=== PATIENT | male | born 1945 | race African-American/Black ===

== ENCOUNTER 2018-05-08 07:33 | Emergency (ER) | payer BC, MEDICARE ==
[~2018-05-08] VITALS: Ht 170.2 cm; Wt 63.5 kg
[~2018-05-08 07:33] MED LIST: ASPI-630 PO; ATOR10TA PO; CARV12.511 PO; CETI10TA16 PO; CITA10TA8 PO; FURO20TA3 PO; HYDR-2761 PO; HYDR-2868 PO; HYDR12.58 PO; L AC460C PO; LOSA100T14 PO; LOSA1TAB19 PO; LOSA25TA54 PO; LOVA20TA2 PO; METR-34 PO; OMEP40CA5 PO; SUCR1TAB PO; TAMS0.4C2 PO; TEMA30CA PO
--- NOTE | 2018-05-08 08:51 | PHYS DOC ---
Past Medical History Past Medical History: GERD, High Cholesterol, Hypertension Additional Past Medical Histor: dumping syndrome, STOMACH ULCERS, BPH, CHRONIC ABD PAIN, thryoid Past Surgical History: Appendectomy, Cholecystectomy, Other Additional Past Surgical Histo: multiple abd surgeries d/t ulcers, carpal tunnel, GASTRIC BYPASS Alcohol Use: Rarely Drug Use: None Adult General Chief Complaint Chief Complaint: MULTIPLE COMPLAINTS [facility] HPI Patient is a 72 year old male who presents with multiple complaints. He has right hand pain and swelling. Pt states his hand pain has been there for a couple months but has gotten worse recently. The pain is located on the back of his hand. He describes a hot, burning sensation. He denies any recent trauma. He states that he also has a similar burning sensation down the lateral aspect of his right leg. The pt also complains of rectal pain with leaking starting a couple weeks ago. He describes an itchy burning sensation. He has a history of many prior abdominal surgeries and chronic abdominal pain for which he takes pain medication. He struggles with constipation due to narcotic use and takes a stool softener. He denies blood in his stool. Review of Systems Review of Systems Constitutional: Denies fever or chills [] Eyes: Denies change in visual acuity, redness, or eye pain [] HENT: Denies nasal congestion or sore throat [] Respiratory: Denies cough or shortness of breath [] Cardiovascular: No additional information not addressed in HPI [] GI: Complains of chronic abdominal pain, rectal pain, and rectal leaking, Denies nausea, vomiting, bloody stools or diarrhea [] : Denies dysuria or hematuria [] Musculoskeletal: Denies back pain or joint pain, Complains of right hand pain[] Integument: Denies rash or skin lesions [] Neurologic: Denies headache, focal weakness Endocrine: Denies polyuria or polydipsia [] All other systems were reviewed and found to be within normal limits, except as documented in this note. Allergies Allergies Allergies Coded Allergies Type Severity Reaction Last Updated Verified No Known Drug Allergies 09/05/13 No Physical Exam Physical Exam Constitutional: Well developed, well nourished, no acute distress, non-toxic appearance. [] HENT: Normocephalic, atraumatic, bilateral external ears normal, oropharynx moist, no oral exudates, nose normal. [] Eyes: PERRLA, EOMI, conjunctiva normal, no discharge. [] Neck: Normal range of motion, no tenderness, supple, no stridor. [] Pulmonary: Normal respiratory effort no increased work of breathing no obvious chest wall trauma Abdomen: Bowel sounds normal, soft, mild nonspecific tenderness which reports is chronic, no masses, no pulsatile masses. [] Rectal exam there is no stool in the vault there is no obstruction there is mild enlargement of the prostate. There may be a small external hemorrhoid no signs of clot Back: No tenderness, no CVA tenderness. [] Extremities: No tenderness, no cyanosis, no clubbing, ROM intact, no edema. [] Neurologic: Alert and oriented X 3, normal motor function,, no focal deficits noted. []There is some decreased sensation to light touch over the dorsum of the right hand however motor function is totally intact pulses present no erythema Psychologic: Affect normal, judgement normal, mood normal. [] Current Patient Data Vital Signs Vital Signs Date Time Temp Pulse Resp B/P (MAP) Pulse Ox O2 Delivery O2 Flow Rate FiO2 05/08/18 09:00 52 16 148/73 (98) 100 Room Air 05/08/18 08:09 98.1 98.1 EKG EKG [] Radiology/Procedures Radiology/Procedures [] Course & Med Decision Making Course & Med Decision Making Pertinent Labs and Imaging studies reviewed. (See chart for details) []72-year-old male multiple medical problems as noted above presenting with 2 major complaints the first is that of some rectal itching and burning pain he may have a small hemorrhoid he was recommended to continue stool softeners for that. In addition is having some burning pain over his dorsum of his right hand this is long-standing several months if not longer we can do a trial of gabapentin apparently this seems to be the maintenance bugging him right now so I recommended that he try gabapentin follow-up with his doctor within 1 week to consider increasing the dose of that. Return precautions were discussed patient voiced understanding these symptoms are subacute or chronic in duration I doubt any acute emergency at this time Dragon Disclaimer Dragon Disclaimer This electronic medical record was generated, in whole or in part, using a voice recognition dictation system. Departure Departure Impression: Primary Impression: Right hand pain Disposition: 01 HOME, SELF-CARE Condition: STABLE Referrals: JAVIER BARRIOS (PCP) Scripts Gabapentin (GABAPENTIN ) 100 Mg Capsule 100 MG PO TID for NEUROGENIC PAIN, #30 CAP Prov: LEX AKERS MD 05/08/18 LEX AKERS MD May 08, 2018 08:51
[2018-05-08 09:00] VITALS: BP 148/73
[2018-05-08] MEDS ORDERED: GABA-585 PO (09:02)
== END 2018-05-08 09:28 | disposition home or self-care (01) ==
LOC: ER 07:33
DX: M79.641 Pain in right hand (principal); M79.89 Other specified soft tissue disorders; K62.89 Other specified diseases of anus and rectum; K59.00 Constipation, unspecified; G89.29 Other chronic pain; R10.9 Unspecified abdominal pain; K21.9 Gastro-esophageal reflux disease without esophagitis; E78.00 Pure hypercholesterolemia, unspecified; I10 Essential (primary) hypertension; Z90.89 Acquired absence of other organs; Z90.49 Acquired absence of other specified parts of digestive tract
CPT/HCPCS: 99283

== ENCOUNTER 2018-09-27 16:31 | Emergency (ER) | payer BC, MEDICARE ==
[~2018-09-27] VITALS: Ht 170.2 cm; Wt 69.4 kg
[~2018-09-27 16:31] MED LIST changes: +GABA-585 PO
[2018-09-27] MEDS ORDERED: IV NORMAL SALINE 1000ML BAG 1,000 ML IV ONE (17:30)
[2018-09-27] MEDS ORDERED: ONDANSETRON PF 4 MG/2 ML VIAL. IV ONE (17:30)
[2018-09-27 18:17] LABS: BASO % 0 % (0-3); EOS % 0 % (0-3); HEMATOCRIT 32.6 % (39.0-53.0); HEMOGLOBIN 10.8 g/dL (13.0-17.5); LYMPH # 0.3 x10^3/uL (1.0-4.8); LYMPH % 3 % (24-48); MEAN CORPUSCULAR HEMOGLOBIN 28 pg (25-35); MEAN CORPUSCULAR HGB CONC 33 g/dL (31-37); MEAN CORPUSCULAR VOLUME 84 fL (79-100); MONO # 0.3 x10^3/uL (0.0-1.1); MONO % 3 % (0-9); NEUT # 11.5 x10^3/uL (1.8-7.7); NEUT % 94 % (31-73); PLATELET COUNT 206 x10^3/uL (140-400); RED BLOOD COUNT 3.86 x10^6/uL (4.30-5.70); RED CELL DISTRIBUTION WIDTH 15.7 % (11.5-14.5); WHITE BLOOD COUNT 12.2 x10^3/uL (4.0-11.0)
--- NOTE | 2018-09-27 18:24 | RAD ---
Exam: Chest one view INDICATION: Dizziness TECHNIQUE: Frontal view of the chest Comparisons: 06/22/2015 FINDINGS: The cardiomediastinal silhouette and pulmonary vessels are within normal limits. The lung and pleural spaces are clear. IMPRESSION: No acute cardiopulmonary process. Electronically signed by: Cherie Cid MD (09/27/2018 6:21 PM) [facility]
[2018-09-27 18:25] LABS: PROTHROMBIN TIME PATIENT 12.9 SEC (11.7-14.0)
[2018-09-27 18:30] LABS: CALCIUM 8.2 mg/dL (8.5-10.1); CREATININE 1.8 mg/dL (0.7-1.3); GFR 45.1; POTASSIUM 4.6 mmol/L (3.5-5.1)
[2018-09-27 18:32] LABS: ALBUMIN 3.1 g/dL (3.4-5.0); ALBUMIN/GLOBULIN RATIO 1.3 (1.0-1.7); TOTAL BILIRUBIN 0.2 mg/dL (0.2-1.0); TOTAL PROTEIN 5.4 g/dL (6.4-8.2)
[2018-09-27 18:39] LABS: % BANDS 1 % (0-9); % LYMPHS 4 % (24-48); % MONOS 2 % (0-10); % SEGS 93 % (35-66); PLT ESTIMATE ADEQUATE (ADEQUATE)
[2018-09-27 18:40] LABS: ACANTHOCYTES OCC; ANISOCYTOSIS SLIGHT; BURR CELLS FEW
[2018-09-27 18:41] LABS: HYPOCHROMIA SLIGHT; SCHISTOCYTES OCC
--- NOTE | 2018-09-27 19:18 | RAD ---
Exam: CT head INDICATION: Dizziness TECHNIQUE: Sequential axial images through the head were obtained without the administration of IV contrast. Comparisons: None FINDINGS: No focal parenchymal lesion or hemorrhage is identified. There is no midline shift or sulcal effacement. No acute vascular territory infarction is identified. Mann-white distinction is preserved. The ventricular system is within normal limits without compression hydrocephalus. The basal cisterns are well maintained. The visualized portions of the paranasal sinuses and mastoid air cells are well-pneumatized. No acute fractures. IMPRESSION: No acute intracranial abnormality. Exposure: One or more of the following in the visualized dose reduction techniques were utilized for this examination: 1. Automated exposure control 2. Adjustment of the MA and/or KV according to patient size Use of iterative of reconstructive technique Electronically signed by: Cherie Cid MD (09/27/2018 7:16 PM) [facility]
[2018-09-27 19:46] LABS: BILIRUBIN,URINE NEGATIVE (NEG); CLARITY,URINE CLEAR; COLOR,URINE YELLOW; NITRITE,URINE NEGATIVE (NEG); PROTEIN,URINE NEGATIVE (NEG-TRACE); UROBILINOGEN,URINE 0.2 mg/dL (0.2 mg/dL)
--- NOTE | 2018-09-27 19:47 | RAD ---
Exam: CT abdomen and pelvis without contrast INDICATION: Dizziness TECHNIQUE: Sequential axial images through the abdomen and pelvis obtained without IV contrast. Sagittal and coronal reformatted images were reconstructed from the axial data and reviewed. Comparisons: 05/15/2015 FINDINGS: Heart size is normal. No pericardial effusion. Visualized lung bases are clear. No pleural effusion. Evaluation of solid organs is limited secondary to noncontrast technique. Liver, spleen, pancreas and adrenals are unremarkable. Gallbladder is absent. No perinephric inflammation or hydronephrosis. No renal or ureteral calculi are identified. Bladder is distended and appears thin walled. Prostate is mildly enlarged. Extensive postsurgical changes in the bowel. Mild bowel wall thickening affecting the descending colon. Diverticulosis noted at the sigmoid colon without evidence of acute diverticulitis. No obstruction. No free intra-abdominal air or fluid. Abdominal aorta has a normal course and caliber. No enlarged intra-abdominal lymph nodes are identified. No suspicious osseous lesions or acute fractures. IMPRESSION: Mild bowel wall thickening with haziness in the adjacent mesenteric fat at the ascending colon, favored to represent colitis may be infectious or inflammatory etiologies. Exposure: One or more of the following in the visualized dose reduction techniques were utilized for this examination: 1. Automated exposure control 2. Adjustment of the MA and/or KV according to patient size 3. Use of iterative of reconstructive technique Electronically signed by: Cherie Cid MD (09/27/2018 7:44 PM) [facility]
[2018-09-27 19:53] LABS: BACTERIA,URINE 0 /HPF (0-FEW); RBC,URINE 0 /HPF (0-2); SQUAMOUS EPITHELIAL CELL,UR OCC /LPF; WBC,URINE RARE /HPF (0-4)
[2018-09-27 19:59] LABS: BARBITURATES NEG (NEG); BENZODIAZEPINES NEG (NEG); CANNABINOIDS NEG (NEG); COCAINE NEG (NEG); METHADONE NEG (NEG); OPIATES POS (NEG); PHENCYCLIDINE NEG (NEG)
[2018-09-27 20:11] LABS: AMPHETAMINE/METHAMPHETAMINE NEG (NEG)
[2018-09-27 20:15] VITALS: BP 133/75
[2018-09-27] MEDS ORDERED: ONDA4TAB12 PO (20:32)
[2018-09-27] MEDS ORDERED: METR500T PO (20:32)
[2018-09-27] MEDS ORDERED: CIPR500T94 PO (20:32)
--- NOTE | 2018-09-27 20:32 | PHYS DOC ---
Past Medical History Past Medical History: GERD, High Cholesterol, Hypertension Additional Past Medical Histor: dumping syndrome, STOMACH ULCERS, BPH, CHRONIC ABD PAIN, thryoid Past Surgical History: Appendectomy, Cholecystectomy, Other Additional Past Surgical Histo: multiple abd surgeries d/t ulcers, carpal tunnel, GASTRIC BYPASS Alcohol Use: Rarely Drug Use: None Adult General Chief Complaint Chief Complaint: NAUSEA/VOMITING/DIARRHA HPI HPI Patient is a 73 year old male with history of hypertension, high cholesterol, acid reflex, multiple abdominal surgeries, who presents to the ED today complaining of 7 out of 10 generalized abdominal pain with vomiting that began today. Patient denies diarrhea. Denies any fever. He is also complaining of dizziness with abdominal pain. Denies anything specifically exacerbating or relieving his symptoms. He states he has an appointment with a GI doctor tomorrow morning. He states he has chronic abdominal pain and is on multiple medications for pain. Review of Systems Review of Systems Constitutional: Denies fever or chills [] Eyes: Denies change in visual acuity, redness, or eye pain [] HENT: Denies nasal congestion or sore throat [] Respiratory: Denies cough or shortness of breath [] Cardiovascular: No additional information not addressed in HPI [] GI: Reports abdominal pain, nausea and vomiting, denies bloody stools or diarrhea [] : Denies dysuria or hematuria [] Musculoskeletal: Denies back pain or joint pain [] Integument: Denies rash or skin lesions [] Neurologic: Reports dizziness. Denies headache, focal weakness or sensory changes [] All other systems were reviewed and found to be within normal limits, except as documented in this note. Current Medications Current Medications Current Medications Medications (Trade) Dose Ordered Sig/Kika Start Time Stop Time Status Last Admin Dose Admin Ondansetron HCl (Zofran) 4 mg 1X ONCE 09/27/18 17:30 09/27/18 17:33 DC 09/27/18 18:23 4 MG Sodium Chloride 1,000 ml @ 1,000 mls/hr 1X ONCE 09/27/18 17:30 09/27/18 18:29 DC 09/27/18 18:23 1,000 MLS/HR Allergies Allergies Allergies Coded Allergies Type Severity Reaction Last Updated Verified No Known Drug Allergies 09/05/13 No Physical Exam Physical Exam Constitutional: Well developed, well nourished, no acute distress, non-toxic appearance. [] HENT: Normocephalic, atraumatic, bilateral external ears normal, oropharynx moist, no oral exudates, nose normal. [] Eyes: PERRLA, EOMI, conjunctiva normal, no discharge. [] Neck: Normal range of motion, no tenderness, supple, no stridor. [] Cardiovascular:Heart rate regular rhythm, no murmur [] Lungs & Thorax: Bilateral breath sounds clear to auscultation [] Abdomen: Old healed surgical incision noted midline abdomen. Bowel sounds normal, soft, diffuse tenderness throughout the abdomen, no obvious point tenderness to the right upper quadrant or right lower quadrant no masses, no pulsatile masses. [] Skin: Warm, dry, no erythema, no rash. [] Back: No tenderness, no CVA tenderness. [] Extremities: No tenderness, no cyanosis, no clubbing, ROM intact, no edema. [] Neurologic: Alert and oriented X 3, normal motor function, normal sensory function, no focal deficits noted. Cranial nerves II through XII intact Psychologic: Affect normal, judgement normal, mood normal. [] Current Patient Data Vital Signs Vital Signs Date Time Temp Pulse Resp B/P (MAP) Pulse Ox O2 Delivery O2 Flow Rate FiO2 09/27/18 17:16 97.5 60 20 168/83 (111) 99 Room Air 97.5 Lab Values Laboratory Tests Test 09/27/18 18:05 09/27/18 19:39 White Blood Count 12.2 x10^3/uL (4.0-11.0) H Red Blood Count 3.86 x10^6/uL (4.30-5.70) L Hemoglobin 10.8 g/dL (13.0-17.5) L Hematocrit 32.6 % (39.0-53.0) L Mean Corpuscular Volume 84 fL (79-100) Mean Corpuscular Hemoglobin 28 pg (25-35) Mean Corpuscular Hemoglobin Concent 33 g/dL (31-37) Red Cell Distribution Width 15.7 % (11.5-14.5) H Platelet Count 206 x10^3/uL (140-400) Neutrophils (%) (Auto) 94 % (31-73) H Lymphocytes (%) (Auto) 3 % (24-48) L Monocytes (%) (Auto) 3 % (0-9) Eosinophils (%) (Auto) 0 % (0-3) Basophils (%) (Auto) 0 % (0-3) Neutrophils # (Auto) 11.5 x10^3/uL (1.8-7.7) H Lymphocytes # (Auto) 0.3 x10^3/uL (1.0-4.8) L Monocytes # (Auto) 0.3 x10^3/uL (0.0-1.1) Eosinophils # (Auto) 0.0 x10^3/uL (0.0-0.7) Basophils # (Auto) 0.0 x10^3/uL (0.0-0.2) Segmented Neutrophils % 93 % (35-66) H Band Neutrophils % 1 % (0-9) Lymphocytes % 4 % (24-48) L Monocytes % 2 % (0-10) Platelet Estimate Adequate (ADEQUATE) Hypochromasia Slight Anisocytosis Slight Fran Cells Few Acanthocytes (Spur Cells) Occ Schistocytes Occ Prothrombin Time 12.9 SEC (11.7-14.0) Prothrombin Time INR 1.0 (0.8-1.1) Sodium Level 144 mmol/L (136-145) Potassium Level 4.6 mmol/L (3.5-5.1) Chloride Level 109 mmol/L (98-107) H Carbon Dioxide Level 26 mmol/L (21-32) Anion Gap 9 (6-14) Blood Urea Nitrogen 18 mg/dL (8-26) Creatinine 1.8 mg/dL (0.7-1.3) H Estimated GFR (Cockcroft-Gault) 45.1 BUN/Creatinine Ratio 10 (6-20) Glucose Level 113 mg/dL (70-99) H Calcium Level 8.2 mg/dL (8.5-10.1) L Magnesium Level 2.0 mg/dL (1.8-2.4) Total Bilirubin 0.2 mg/dL (0.2-1.0) Aspartate Amino Transferase (AST) 58 U/L (15-37) H Alanine Aminotransferase (ALT) 71 U/L (16-63) H Alkaline Phosphatase 152 U/L (46-116) H Creatine Kinase 235 U/L (39-308) Creatine Kinase MB (Mass) 6.2 ng/mL (0.0-3.6) H Creatine Kinase MB Relative Index 2.6 % (0-4) Troponin I Quantitative < 0.017 ng/mL (0.000-0.055) FN-Gru-F-Type Natriuretic Peptide 150 pg/mL (0-124) H Total Protein 5.4 g/dL (6.4-8.2) L Albumin 3.1 g/dL (3.4-5.0) L Albumin/Globulin Ratio 1.3 (1.0-1.7) Lipase 102 U/L (73-393) Urine Collection Type Unknown Urine Color Yellow Urine Clarity Clear Urine pH 6.0 Urine Specific Barnes 1.015 Urine Protein Negative mg/dL (NEG-TRACE) Urine Glucose (UA) Negative mg/dL (NEG) Urine Ketones (Stick) Negative mg/dL (NEG) Urine Blood Negative (NEG) Urine Nitrite Negative (NEG) Urine Bilirubin Negative (NEG) Urine Urobilinogen Dipstick 0.2 mg/dL (0.2 mg/dL) Urine Leukocyte Esterase Negative (NEG) Urine RBC 0 /HPF (0-2) Urine WBC Rare /HPF (0-4) Urine Squamous Epithelial Cells Occ /LPF Urine Bacteria 0 /HPF (0-FEW) Urine Opiates Screen Pos (NEG) Urine Methadone Screen Neg (NEG) Urine Barbiturates Neg (NEG) Urine Phencyclidine Screen Neg (NEG) Urine Amphetamine/Methamphetamine Neg (NEG) Urine Benzodiazepines Screen Neg (NEG) Urine Cocaine Screen Neg (NEG) Urine Cannabinoids Screen Neg (NEG) Urine Ethyl Alcohol Neg (NEG) Laboratory Tests 09/27/18 18:05 Laboratory Tests 09/27/18 18:05 EKG EKG [] Radiology/Procedures Radiology/Procedures []PROCEDURE: CT HEAD WO CONTRAST Exam: CT head INDICATION: Dizziness TECHNIQUE: Sequential axial images through the head were obtained without the administration of IV contrast. Comparisons: None FINDINGS: No focal parenchymal lesion or hemorrhage is identified. There is no midline shift or sulcal effacement. No acute vascular territory infarction is identified. Mann-white distinction is preserved. The ventricular system is within normal limits without compression hydrocephalus. The basal cisterns are well maintained. The visualized portions of the paranasal sinuses and mastoid air cells are well-pneumatized. No acute fractures. IMPRESSION: No acute intracranial abnormality. Exposure: One or more of the following in the visualized dose reduction techniques were utilized for this examination: 1. Automated exposure control 2. Adjustment of the MA and/or KV according to patient size Use of iterative of reconstructive technique Electronically signed by: Cherie Laguerre MD (09/27/2018 7:16 PM) [facility] DICTATED and SIGNED BY: CHERIE LAGUERRE MD DATE: 09/27/181915 PROCEDURE: PORTABLE CHEST 1V Exam: Chest one view INDICATION: Dizziness TECHNIQUE: Frontal view of the chest Comparisons: 06/22/2015 FINDINGS: The cardiomediastinal silhouette and pulmonary vessels are within normal limits. The lung and pleural spaces are clear. IMPRESSION: No acute cardiopulmonary process. Electronically signed by: Cherie Laguerre MD (09/27/2018 6:21 PM) [facility] DICTATED and SIGNED BY: CHERIE LAGUERRE MD DATE: 09/27/181820 PROCEDURE: CT ABDOMEN PELVIS WO CONTRAST Exam: CT abdomen and pelvis without contrast INDICATION: Dizziness TECHNIQUE: Sequential axial images through the abdomen and pelvis obtained without IV contrast. Sagittal and coronal reformatted images were reconstructed from the axial data and reviewed. Comparisons: 05/15/2015 FINDINGS: Heart size is normal. No pericardial effusion. Visualized lung bases are clear. No pleural effusion. Evaluation of solid organs is limited secondary to noncontrast technique. Liver, spleen, pancreas and adrenals are unremarkable. Gallbladder is absent. No perinephric inflammation or hydronephrosis. No renal or ureteral calculi are identified. Bladder is distended and appears thin walled. Prostate is mildly enlarged. Extensive postsurgical changes in the bowel. Mild bowel wall thickening affecting the descending colon. Diverticulosis noted at the sigmoid colon without evidence of acute diverticulitis. No obstruction. No free intra-abdominal air or fluid. Abdominal aorta has a normal course and caliber. No enlarged intra-abdominal lymph nodes are identified. No suspicious osseous lesions or acute fractures. IMPRESSION: Mild bowel wall thickening with haziness in the adjacent mesenteric fat at the ascending colon, favored to represent colitis may be infectious or inflammatory etiologies. Exposure: One or more of the following in the visualized dose reduction techniques were utilized for this examination: 1. Automated exposure control 2. Adjustment of the MA and/or KV according to patient size 3. Use of iterative of reconstructive technique Electronically signed by: Cherie Laguerre MD (09/27/2018 7:44 PM) [facility] DICTATED and SIGNED BY: CHERIE LAGUERRE MD DATE: 09/27/181943 Course & Med Decision Making Course & Med Decision Making Pertinent Labs and Imaging studies reviewed. (See chart for details) This is a 73-year-old male patient presenting to the ED today with generalized abdominal pain, nausea vomiting and dizziness that began today. CBC with a WBC of 12.2, CMP creatinine of 1.8, BUN is normal, this is patient's baseline creatinine. AST 58, ALT 71, LK 152. Hemoglobin is 10.8, hematocrit 32.6. This is patient's baseline CT of the abdomen and pelvic was noted for colitis. Talked to patient about admission and they've been called Dr. Grady was accepted patient for admission. Patient's family states patient has an appointment with a GI doctor tomorrow morning at [facility], family would like patient to follow-up as an outpatient because it has taken months to get this appointment and they do not want to miss it. Patient will be given Cipro and Flagyl in the ED and discharged with the same including zofran. Dragon Disclaimer Dragon Disclaimer This electronic medical record was generated, in whole or in part, using a voice recognition dictation system. Departure Departure Impression: Primary Impression: Acute colitis Additional Impression: Dizziness Disposition: 01 HOME, SELF-CARE Condition: STABLE Referrals: JAVIER BARRIOS (PCP) Follow-up with your doctor tomorrow morning Patient Instructions: Colitis, Dizziness, [id number] Additional Instructions: You were evaluated in the emergency room and noted to have colitis. We put you on antibiotics, take them as prescribed. Please follow-up with your GI doctor tomorrow as scheduled. Scripts Metronidazole (FLAGYL) 500 Mg Tablet 500 MG PO TID, #30 TAB Prov: KELSEY SHEETS [employer] 09/27/18 Ciprofloxacin Hcl (CIPRO) 500 Mg Tablet 1 TAB PO BID, #20 TAB Prov: KELSEY SHEETS APRN 09/27/18 Ondansetron (ONDANSETRON ODT) 4 Mg Tab.rapdis 1 TAB PO PRN Q6-8HRS, #16 TAB Prov: JERRYAKELSEY [employer] 09/27/18 Problem Qualifiers KELSEY SHEETS [employer] Sep 27, 2018 20:32
[2018-09-27] MEDS ORDERED: CIPROFLOXACIN HCL 250 MG TABLET. PO ONE (20:45)
[2018-09-27] MEDS ORDERED: metroNIDAZOLE 500 MG TABLET PO ONE (20:45)
--- NOTE | 2018-09-28 06:19 | EKG ---
[facility] [address] [place] [address] Test Date: 2018-09-27 Test Time: 17:41:29 Pat Name: CHRISS CABA Department: Room: Gender: M [employer]: : 1945 Requested By: KELSEY SHEETS Order Number: [id number] Reading MD: Carloz Leroy MD Measurements Intervals Ida Rate: 53 P: 71 DC: 162 QRS: 26 QRSD: 86 T: 44 QT: 478 QTc: 455 Interpretive Statements SINUS RHYTHM Electronically Signed On 09-29-2018 15:49:15 CDT by Carloz Leroy MD
== END 2018-09-27 21:29 | disposition home or self-care (01) ==
LOC: ER 16:31
DX: K52.9 Noninfective gastroenteritis and colitis, unspecified (principal); R42 Dizziness and giddiness; K21.9 Gastro-esophageal reflux disease without esophagitis; E78.00 Pure hypercholesterolemia, unspecified; I10 Essential (primary) hypertension; G89.29 Other chronic pain; Z90.89 Acquired absence of other organs; Z90.49 Acquired absence of other specified parts of digestive tract; Z98.84 Bariatric surgery status
CPT/HCPCS: 36415; 70450; 71045; 74176; 80053; 80307; 81001; 82553; 83690; 83735; 83880; 84484; 85007; 85025; 85610; 93005; 96361; 96374; 99285; J2405; J7030

== ENCOUNTER 2019-02-19 11:16 | Emergency (ER) | payer BC, MEDICARE, OTHER ==
[~2019-02-19] VITALS: Ht 170.2 cm; Wt 62.6 kg
[~2019-02-19 11:16] MED LIST changes: +CIPR500T94 PO; +METR500T PO; +OMEP40CA45 PO; -OMEP40CA5 PO; +ONDA4TAB12 PO
--- NOTE | 2019-02-19 15:26 | PHYS DOC ---
Past Medical History Past Medical History: GERD, High Cholesterol, Hypertension, Other Additional Past Medical Histor: dumping syndrome, STOMACH ULCERS, BPH, CHRONIC ABD PAIN, thryoid Past Surgical History: Appendectomy, Cholecystectomy, Other Additional Past Surgical Histo: multiple abd surgeries d/t ulcers, carpal tunnel, GASTRIC BYPASS Alcohol Use: Rarely Drug Use: None Adult General Chief Complaint Chief Complaint: UPPER EXTREMITY PAIN HPI HPI Patient is a 73 year old male with history of high cholesterol, hypertension, acid reflex, who presents to the ED today complaining of right hand swelling and mild pain specifically in the dorsal aspect that began 3 days ago. Patient denies any injury. Denies any pain right right upper extremity. Denies any nausea or vomiting. Denies any chest pain or shortness of breath. Reports he noted the pain and swelling when he woke up 3 days ago. It has anything exacerbating or relieving his pain. Review of Systems Review of Systems Constitutional: Denies fever or chills [] Eyes: Denies change in visual acuity, redness, or eye pain [] HENT: Denies nasal congestion or sore throat [] Respiratory: Denies cough or shortness of breath [] Cardiovascular: No additional information not addressed in HPI [] GI: Denies abdominal pain, nausea, vomiting, bloody stools or diarrhea [] : Denies dysuria or hematuria [] Musculoskeletal: Reports right hand pain and swelling Integument: Denies rash or skin lesions [] Neurologic: Denies headache, focal weakness or sensory changes [] All other systems were reviewed and found to be within normal limits, except as documented in this note. Allergies Allergies Allergies Coded Allergies Type Severity Reaction Last Updated Verified No Known Drug Allergies 09/05/13 No Physical Exam Physical Exam Constitutional: Well developed, well nourished, no acute distress, non-toxic appearance. [] HENT: Normocephalic, atraumatic, bilateral external ears normal, oropharynx moist, no oral exudates, nose normal. [] Eyes: PERRLA, EOMI, conjunctiva normal, no discharge. [] Neck: Normal range of motion, no tenderness, supple, no stridor. [] Cardiovascular:Heart rate regular rhythm, no murmur [] Lungs & Thorax: Bilateral breath sounds clear to auscultation [] Abdomen: Bowel sounds normal, soft, no tenderness, no masses, no pulsatile masses. [] Skin: Warm, dry, no erythema, no rash. [] Back: No tenderness, no CVA tenderness. [] Extremities: Right dorsal hand with mild soft tissue swelling noted right femur, slight warmth noted on the right dorsal hand. Full range of motion to the right hand and fingers. Adequate radial, medial, ulnar sensation to the right hand. +2 right radial pulse. Cap refill less than 2 seconds the right fingers. Neurologic: Alert and oriented X 3, normal motor function, normal sensory function, no focal deficits noted. [] Psychologic: Affect normal, judgement normal, mood normal. [] Current Patient Data Vital Signs Vital Signs Date Time Temp Pulse Resp B/P (MAP) Pulse Ox O2 Delivery O2 Flow Rate FiO2 02/19/19 16:13 51 165/77 (106) 99 Room Air 02/19/19 13:53 98.0 18 98.0 Lab Values Laboratory Tests Test 02/19/19 15:51 White Blood Count 7.2 x10^3/uL (4.0-11.0) Red Blood Count 4.10 x10^6/uL (4.30-5.70) L Hemoglobin 11.1 g/dL (13.0-17.5) L Hematocrit 34.5 % (39.0-53.0) L Mean Corpuscular Volume 84 fL (79-100) Mean Corpuscular Hemoglobin 27 pg (25-35) Mean Corpuscular Hemoglobin Concent 32 g/dL (31-37) Red Cell Distribution Width 15.3 % (11.5-14.5) H Platelet Count 240 x10^3/uL (140-400) Neutrophils (%) (Auto) 80 % (31-73) H Lymphocytes (%) (Auto) 14 % (24-48) L Monocytes (%) (Auto) 5 % (0-9) Eosinophils (%) (Auto) 1 % (0-3) Basophils (%) (Auto) 0 % (0-3) Neutrophils # (Auto) 5.8 x10^3/uL (1.8-7.7) Lymphocytes # (Auto) 1.0 x10^3/uL (1.0-4.8) Monocytes # (Auto) 0.3 x10^3/uL (0.0-1.1) Eosinophils # (Auto) 0.0 x10^3/uL (0.0-0.7) Basophils # (Auto) 0.0 x10^3/uL (0.0-0.2) Sodium Level 144 mmol/L (136-145) Potassium Level 4.6 mmol/L (3.5-5.1) Chloride Level 109 mmol/L (98-107) H Carbon Dioxide Level 26 mmol/L (21-32) Anion Gap 9 (6-14) Blood Urea Nitrogen 13 mg/dL (8-26) Creatinine 1.6 mg/dL (0.7-1.3) H Estimated GFR (Cockcroft-Gault) 51.7 BUN/Creatinine Ratio 8 (6-20) Glucose Level 86 mg/dL (70-99) Uric Acid 4.0 mg/dL (3.5-7.2) Calcium Level 8.7 mg/dL (8.5-10.1) Total Bilirubin 0.2 mg/dL (0.2-1.0) Aspartate Amino Transferase (AST) 33 U/L (15-37) Alanine Aminotransferase (ALT) 37 U/L (16-63) Alkaline Phosphatase 141 U/L (46-116) H C-Reactive Protein, Quantitative < 0.5 mg/L (0-3.3) Total Protein 5.6 g/dL (6.4-8.2) L Albumin 2.8 g/dL (3.4-5.0) L Albumin/Globulin Ratio 1.0 (1.0-1.7) Laboratory Tests 02/19/19 15:51 Laboratory Tests 02/19/19 15:51 EKG EKG [] Radiology/Procedures Radiology/Procedures []PROCEDURE: VENOUS UPPER EXTREMITY RIGHT EXAM: Right upper extremity venous Doppler sonogram. HISTORY: Right hand swelling. TECHNIQUE: Mann scale and color Doppler sonographic evaluation of the right upper extremity veins with spectral waveform analysis was performed. FINDINGS: There is normal color flow, normal compressibility and there are normal spectral waveforms in the right upper extremity veins. IMPRESSION: No Doppler evidence of upper extremity venous thrombosis. Electronically signed by: Cholo Villar MD (02/19/2019 3:59 PM) [place] [id number] DICTATED and SIGNED BY: CHOLO VILLAR MD DATE: 02/19/19 1554 PROCEDURE: HAND RIGHT 3V Study: HAND RIGHT 3V Indication: Pain and swelling. Comparison: None. Findings: No acute fracture or aggressive osseous process. No traumatic malalignment. Scattered degenerative changes such as involving the interphalangeal joints, most notable at the thumb IP joint. Impression: 1. No acute osseous abnormality. Alignment is maintained. 2. Scattered degenerative changes most pronounced at the thumb IP joint. Electronically signed by: GIOVANI BAKER MD (02/19/2019 4:09 PM) [facility] DICTATED and SIGNED BY: GIOVANI BAKER MD DATE: 02/19/19 1609 Course & Med Decision Making Course & Med Decision Making Pertinent Labs and Imaging studies reviewed. (See chart for details) This is a 73-year-old male patient presented to the ED today with right hand pain and swelling that began 3 days ago. No known injury, right hand x-rays interpreted by radiologist were noted for arthritis otherwise no acute findings. Venous Doppler of the right upper extremity negative. CBC within acute fi ndings, CMP with creatinine of 1.6, BUN is normal, this is around patient's baseline, he has history of chronic renal insufficiency.Uric acid is normal, C- reactive is normal. Sedimentation rate is still pending. I personally wrapped an Maulik bandage over patient's right hand, neurovascular exam is intact. Encouraged him to ice and elevate the extremity. Gave him a prescription for Voltaren and medrol dose pack. Follow-up with his own PCP in the course of this week or next week. Dragon Disclaimer Dragon Disclaimer This electronic medical record was generated, in whole or in part, using a voice recognition dictation system. Departure Departure Impression: Primary Impression: Right hand pain Additional Impression: Degenerative joint disease of hand, right Disposition: HOME, SELF-CARE Condition: STABLE Referrals: JAVIER BARRIOS (PCP) Follow up in 1-2 weeks WERNER ALVARENGA MD follow up in one week Patient Instructions: Arthritis, Degenerative-Brief Additional Instructions: You were evaluated in the emergency room for right hand swelling and pain, your right hand xrays were noted for arthritis in your right hand. Try and keep the Maulik bandage on as tolerated. Try to ice and elevate the extremity. Take the prescribed medications as ordered and follow-up with your own primary care doctor or the provided orthopedic doctor in 1-2 weeks. Scripts Diclofenac Sodium (VOLTAREN) 100 Gm Gel..gram. 1 GM TP QID for pain, #1 EACH 0 Refills Apply to the right hand Prov: KELSEY SHEETS DOMITILA 02/19/19 Methylprednisolone (MEDROL) 4 Mg Tab.ds.pk 1 PKG PO UD, #1 PKG Prov: KELSEY SHEETS DOMITILA 02/19/19 Problem Qualifiers Additional Impression: Degenerative joint disease of hand, right Osteoarthritis type: unspecified Qualified Codes: M19.041 - Primary osteoarthritis, right hand KELSEY SHEETS DOMITLIA Feb 19, 2019 15:26
[2019-02-19 15:56] LABS: BASO % 0 % (0-3); EOS % 1 % (0-3); HEMATOCRIT 34.5 % (39.0-53.0); HEMOGLOBIN 11.1 g/dL (13.0-17.5); LYMPH % 14 % (24-48); MEAN CORPUSCULAR HEMOGLOBIN 27 pg (25-35); MEAN CORPUSCULAR HGB CONC 32 g/dL (31-37); MEAN CORPUSCULAR VOLUME 84 fL (79-100); MONO # 0.3 x10^3/uL (0.0-1.1); MONO % 5 % (0-9); NEUT # 5.8 x10^3/uL (1.8-7.7); NEUT % 80 % (31-73); PLATELET COUNT 240 x10^3/uL (140-400); RED CELL DISTRIBUTION WIDTH 15.3 % (11.5-14.5); WHITE BLOOD COUNT 7.2 x10^3/uL (4.0-11.0)
--- NOTE | 2019-02-19 16:02 | RAD ---
EXAM: Right upper extremity venous Doppler sonogram. HISTORY: Right hand swelling. TECHNIQUE: Mann scale and color Doppler sonographic evaluation of the right upper extremity veins with spectral waveform analysis was performed. FINDINGS: There is normal color flow, normal compressibility and there are normal spectral waveforms in the right upper extremity veins. IMPRESSION: No Doppler evidence of upper extremity venous thrombosis. Electronically signed by: Venessa Horn MD (02/19/2019 3:59 PM) [place] [id number]
--- NOTE | 2019-02-19 16:12 | RAD ---
Study: HAND RIGHT 3V Indication: Pain and swelling. Comparison: None. Findings: No acute fracture or aggressive osseous process. No traumatic malalignment. Scattered degenerative changes such as involving the interphalangeal joints, most notable at the thumb IP joint. Impression: 1. No acute osseous abnormality. Alignment is maintained. 2. Scattered degenerative changes most pronounced at the thumb IP joint. Electronically signed by: GIOVANI BAKER MD (02/19/2019 4:09 PM) [facility] [place]
[2019-02-19 16:16] LABS: ANION GAP 9 (6-14); BLOOD UREA NITROGEN 13 mg/dL (8-26); BUN/CREATININE RATIO 8 (6-20); CALCIUM 8.7 mg/dL (8.5-10.1); CARBON DIOXIDE 26 mmol/L (21-32); CHLORIDE 109 mmol/L (98-107); CREATININE 1.6 mg/dL (0.7-1.3); GFR 51.7; GLUCOSE 86 mg/dL (70-99); POTASSIUM 4.6 mmol/L (3.5-5.1); SODIUM 144 mmol/L (136-145)
[2019-02-19 16:23] LABS: ALBUMIN 2.8 g/dL (3.4-5.0); ALK PHOS 141 U/L (46-116); ALT (SGPT) 37 U/L (16-63); AST (SGOT) 33 U/L (15-37); C-REACTIVE PROTEIN < 0.5 mg/L (0-3.3); TOTAL BILIRUBIN 0.2 mg/dL (0.2-1.0); TOTAL PROTEIN 5.6 g/dL (6.4-8.2)
[2019-02-19 16:43] VITALS: BP 154/70
[2019-02-19] MEDS ORDERED: METH4TAB2 PO (17:09)
[2019-02-19] MEDS ORDERED: DICL100G18 TP (17:09)
== END 2019-02-19 17:28 | disposition home or self-care (01) ==
LOC: ER 11:16
DX: M19.041 Primary osteoarthritis, right hand (principal); K21.9 Gastro-esophageal reflux disease without esophagitis; E78.00 Pure hypercholesterolemia, unspecified; I10 Essential (primary) hypertension; G89.29 Other chronic pain
CPT/HCPCS: 36415; 73130; 80053; 84550; 85025; 85651; 86140; 93971; 99285-25

== ENCOUNTER 2019-08-19 22:33 | Inpatient (IN) | payer OTHER ==
[~2019-08-19] VITALS: Ht 170.2 cm; Wt 66.9 kg
[~2019-08-19 22:33] MED LIST changes: +DICL100G54 TP; +METH4TAB2 PO
--- NOTE | 2019-08-19 23:00 | PHYS DOC ---
Past Medical History Past Medical History: GERD, High Cholesterol, Hypertension, Other Additional Past Medical Histor: dumping syndrome, STOMACH ULCERS, BPH, CHRONIC ABD PAIN, thryoid Past Surgical History: Appendectomy, Cholecystectomy, Other Additional Past Surgical Histo: multiple abd surgeries d/t ulcers, carpal tunnel, GASTRIC BYPASS Smoking Status: Never Smoker Alcohol Use: Rarely Drug Use: None General Adult EDM: Chief Complaint: OVERDOSE HPI: HPI: Patient is a 74 year old MALE past medical history hypertension hyperlipidemia and GERD presents for evaluation of altered mental status. Approximately 30 minutes prior to arrival states she found patient to be altered. states symptoms started after patient took his medications. Patient states he only took his prescription medications. On exam patient is alert but confused. He does seem somewhat drowsy. He has clear copious drainage coming from his nose and mouth. Patient states the drainage started shortly after taking his medications. Patient states he has some epigastric discomfort No focal weakness appreciated. Patient is alert to name and place-- he does not know the year, month, or the president. Review of Systems: Review of Systems: Constitutional: Denies fever or chills. [] Eyes: Denies change in visual acuity. [] HENT: Denies nasal congestion or sore throat. [Positive nasal drainage] Respiratory: Denies cough or shortness of breath. [] Cardiovascular: Denies chest pain or edema. [] GI: Denies abdominal pain, nausea, vomiting, bloody stools or diarrhea. [] : Denies dysuria. [] Musculoskeletal: Denies back pain or joint pain. [] Integument: Denies rash. [] Neurologic: Denies headache, focal weakness or sensory changes. [Positive confusion] Endocrine: Denies polyuria or polydipsia. [] Lymphatic: Denies swollen glands. [] Psychiatric: Denies depression or anxiety. [] Heart Score: Risk Factors: Risk Factors: DM, Current or recent (<one month) smoker, HTN, HLP, family history of CAD, obesity. Risk Scores: Score 0 - 3: 2.5% MACE over next 6 weeks - Discharge Home Score 4 - 6: 20.3% MACE over next 6 weeks - Admit for Clinical Observation Score 7 - 10: 72.7% MACE over next 6 weeks - Early Invasive Strategies Allergies: Allergies: Allergies Coded Allergies Type Severity Reaction Last Updated Verified No Known Drug Allergies 09/05/13 No Physical Exam: PE: Constitutional: Well developed, well nourished, no acute distress, HENT: Normocephalic, atraumatic, bilateral external ears normal, COPIOUS CLEAR DRAINAGE FROM MOUTH AND NOSE Eyes:PINPOINT, EOMI, conjunctiva normal, no discharge. [] Neck: Normal range of motion, no tenderness, supple, no stridor. [] Cardiovascular:Heart rate regular rhythm, no murmur [] Lungs & Thorax: Bilateral breath sounds clear to auscultation [] Abdomen: Bowel sounds normal, soft, no tenderness, no masses, no pulsatile masses. [] Skin: Warm, dry, no erythema, no rash. [] Back: No tenderness, no CVA tenderness. [] Extremities: No tenderness, no cyanosis, no clubbing, ROM intact, no edema. [] Neurologic: AlerT but confused- does not know year/month/president, normal motor function, normal sensory function, no focal deficits noted. [] EKG: EKG: [] EKG 2307 hrs. Heart rate [address] elevation no ST depression no acute RI Radiology/Procedures: Radiology/Procedures: [] Impression: Findings: Comparison study is dated 09/27/2018. There is generalized parenchymal atrophy. Areas of decreased attenuation are seen within the periventricular and subcortical white matter of both cerebral hemispheres consistent with areas of small vessel ischemic disease. No acute parenchymal abnormality is seen. No extra-axial fluid collection is noted. No skull fracture is seen. Impression: No acute intracranial abnormality is seen. Electronically signed by: Gerson Gregory MD (08/19/2019 11:43 PM) [id number] Course & Med Decision Making: Course & Med Decision Making Pertinent Labs and Imaging studies reviewed. (See chart for details) [] Dragon Disclaimer: Dragon Disclaimer: This electronic medical record was generated, in whole or in part, using a voice recognition dictation system. Departure Departure Impression: Primary Impression: Altered mental status Disposition: ADMITTED INPATIENT Condition: STABLE Referrals: JAVIER BARRIOS (PCP) Justicifation of Admission Dx: Justifications for Admission: Justification of Admission Dx: Yes Comments: ALTERED MENTAL STATUS KATHERINE VAZQUEZ I DO Aug 19, 2019 22:59
[2019-08-19 23:25] LABS: CALCIUM 7.6 mg/dL (8.5-10.1); GFR 39.8; POTASSIUM 3.9 mmol/L (3.5-5.1)
[2019-08-19 23:30] LABS: ALBUMIN 2.5 g/dL (3.4-5.0); ALBUMIN/GLOBULIN RATIO 0.9 (1.0-1.7); TOTAL BILIRUBIN 0.1 mg/dL (0.2-1.0); TOTAL PROTEIN 5.4 g/dL (6.4-8.2)
--- NOTE | 2019-08-19 23:46 | RAD ---
CT scan of the head without contrast 08/19/2019 Clinical History: Altered mental status. Technique: Unenhanced, contiguous, 5 mm axial sections were obtained through the head. One or more of the following individualized dose reduction techniques were utilized for this study: 1. Automated exposure control. 2. Adjustment of the mA and/or kV according to patient size. 3. Use of iterative reconstruction technique. Findings: Comparison study is dated 09/27/2018. There is generalized parenchymal atrophy. Areas of decreased attenuation are seen within the periventricular and subcortical white matter of both cerebral hemispheres consistent with areas of small vessel ischemic disease. No acute parenchymal abnormality is seen. No extra-axial fluid collection is noted. No skull fracture is seen. Impression: No acute intracranial abnormality is seen. Electronically signed by: Gerson Gregory MD (08/19/2019 11:43 PM) [id number]
[2019-08-20 00:03] LABS: AMPHETAMINE/METHAMPHETAMINE NEG (NEG); BARBITURATES NEG (NEG); BENZODIAZEPINES NEG (NEG); CANNABINOIDS NEG (NEG); COCAINE NEG (NEG); METHADONE NEG (NEG); OPIATES POS (NEG); PHENCYCLIDINE NEG (NEG)
[2019-08-20 00:42] LABS: BILIRUBIN,URINE NEGATIVE (NEG); CLARITY,URINE CLEAR; COLOR,URINE YELLOW; NITRITE,URINE NEGATIVE (NEG); PH,URINE 5.5 (<5.0-8.0); PROTEIN,URINE NEGATIVE (NEG-TRACE); UROBILINOGEN,URINE 0.2 mg/dL (0.2 mg/dL)
[2019-08-20 00:50] LABS: SQUAMOUS EPITHELIAL CELL,UR OCC /LPF
[2019-08-20 00:51] LABS: BACTERIA,URINE 0 /HPF (0-FEW); RBC,URINE 0 /HPF (0-2); WBC,URINE 0 /HPF (0-4)
[2019-08-20] MEDS ORDERED: ONDANSETRON PF 4 MG/2 ML VIAL. IV PRN ×2 (01:15→08:00)
--- NOTE | 2019-08-20 01:43 | RAD ---
AP portable chest radiograph 08/20/2019 Clinical History: Unexplained dizziness and altered mental status. An AP erect portable digital radiograph of the chest was obtained. Comparison study is dated 09/27/2018. The cardiac silhouette is normal in size. The thoracic aorta is minimally tortuous. No acute pulmonary infiltrate is seen. No pleural effusion or pneumothorax is noted. Degenerative changes are seen involving the thoracic spine and both shoulders. Impression: No acute abnormality is seen. Electronically signed by: Gerson Gregory MD (08/20/2019 1:40 AM) [id number]
--- NOTE | 2019-08-20 02:16 | NUR ---
PT ADMITTED TO 258 ALERT WITH SOME CONFUSION, ADMISSION PACKET GIVEN EXPLAIN POC, WILL CONT TO MONITOR PT SAFETY AND STATUS. PMRN
[2019-08-20 02:30] VITALS: BP 129/75
[2019-08-20 06:19] LABS: BASO % 0 % (0-3); EOS % 0 % (0-3); HEMATOCRIT 30.3 % (39.0-53.0); HEMOGLOBIN 9.9 g/dL (13.0-17.5); LYMPH # 0.8 x10^3/uL (1.0-4.8); LYMPH % 10 % (24-48); MEAN CORPUSCULAR HEMOGLOBIN 27 pg (25-35); MEAN CORPUSCULAR HGB CONC 33 g/dL (31-37); MEAN CORPUSCULAR VOLUME 83 fL (79-100); MONO # 0.4 x10^3/uL (0.0-1.1); MONO % 5 % (0-9); NEUT # 6.3 x10^3/uL (1.8-7.7); NEUT % 85 % (31-73); PLATELET COUNT 252 x10^3/uL (140-400); RED BLOOD COUNT 3.63 x10^6/uL (4.30-5.70); RED CELL DISTRIBUTION WIDTH 15.9 % (11.5-14.5); WHITE BLOOD COUNT 7.5 x10^3/uL (4.0-11.0)
[2019-08-20 07:00] VITALS: BP 114/63
[2019-08-20] MEDS ORDERED: LEVO25TA55 PO (07:38)
[2019-08-20] MEDS ORDERED: TAMS0.4C97 PO (07:38)
[2019-08-20] MEDS ORDERED: CETI10TA74 PO (07:38)
[2019-08-20] MEDS ORDERED: FURO-69 PO (07:38)
[2019-08-20] MEDS ORDERED: DONE10TA61 PO (07:38)
[2019-08-20] MEDS ORDERED: MEMA10TA PO (07:38)
[2019-08-20] MEDS ORDERED: ERGO500027 PO (07:38)
[2019-08-20] MEDS ORDERED: MIRT30TA PO (07:38)
[2019-08-20] MEDS ORDERED: MIRT30TA2 PO (07:38)
--- NOTE | 2019-08-20 07:54 | PDOC1 ---
History and Physical Date of Admission Date of Admission DATE: 08/20/19 TIME: 07:42 Identification/Chief Complaint Chief Complaint Altered mental status Source Source: Caregiver, Chart review, Patient History of Present Illness History of Present Illness Mr Smith is a 74 M w/ PMHx hypertension hyperlipidemia, BPH, dumping syndrome, hypothyroidism, and GERD presents for evaluation of altered mental status. Approximately 30 minutes prior to arrival states she found patient to be altered. states symptoms started after patient took his evening medications on 08/19/2019, but she was in the laundry room. Patient states he only took his prescription medications. On exam patient is confused. He does seem somewhat drowsy. Patient states he has some epigastric discomfort and dysuria and pain on urination. No focal weakness appreciated. CT head and chest x-ray are negative for acute abnormalities EKG NSR. Labs, NA 143, K3.9, BUN 21, CR 2, glucose 168, albumin 2.5, troponin 0, WBC 7.5, Hb 9.9, platelets 252 Admitted for further care. During examination he has some twitching similar to dystonic reaction. He asks if he can get up. Then he begins mumbling and falls asleep. Past Medical History Cardiovascular: HTN, Hyperlipidemia GI: GERD, GI bleed, Gastritis Renal/: Benign prostatic enlarg. Past Surgical History Past Surgical History: Appendectomy, Cholecystectomy, Colon Resection, Other (Gastric bypass) Family History Family History: Diabetes Social History Smoke: No ALCOHOL: none Drugs: None Current Problem List Problem List Problems Medical Problems: (1) Altered mental status Status: Acute Current Medications Current Medications Current Medications Ondansetron HCl (Zofran) 4 mg PRN Q8HRS PRN IV NAUSEA/VOMITING Last administered on 08/20/19at 05:19; Start 08/20/19 at 01:15; Stop 08/21/19 at 01:14 Active Scripts Active Voltaren (Diclofenac Sodium) 100 Gm Gel..gram. 1 Gm TP QID Apply to the right hand Medrol (Methylprednisolone) 4 Mg Tab.ds.pk 1 Pkg PO UD Flagyl (Metronidazole) 500 Mg Tablet 500 Mg PO TID Cipro (Ciprofloxacin Hcl) 500 Mg Tablet 1 Tab PO BID Ondansetron Odt (Ondansetron) 4 Mg Tab.rapdis 1 Tab PO PRN Q6-8HRS Gabapentin (Gabapentin) 100 Mg Capsule 100 Mg PO TID Reported Vitamin D2 (Ergocalciferol (Vitamin D2)) 1,250 Mcg Capsule 1,250 Mcg PO DAILY Namenda (Memantine Hcl) 10 Mg Tablet 10 Mg PO BID Remeron (Mirtazapine) 30 Mg Tablet 30 Mg PO DAILY Remeron (Mirtazapine) 30 Mg Tab.rapdis 30 Mg PO HS Flomax (Tamsulosin Hcl) 0.4 Mg Cap.er.24h 0.4 Mg PO HS Aricept (Donepezil Hcl) 10 Mg Tablet 10 Mg PO HS Lasix (Furosemide) 20 Mg Tablet 20 Mg PO DAILY Synthroid (Levothyroxine Sodium) 25 Mcg Tablet 25 Mcg PO DAILYAC Zyrtec (Cetirizine Hcl) 10 Mg Tablet 10 Mg PO DAILY Allergies Allergies: Coded Allergies: No Known Drug Allergies (Unverified , 09/05/13) ROS Review of System Unable to obtain due to severity of altered mental status. Physical Exam General: Alert, Cooperative, mild distress HEENT: Atraumatic, PERRLA, EOMI, Mucous membr. moist/pink Lungs: Clear to auscultation, Normal air movement Heart: S1S2, RRR, no thrills, no rubs, no gallops, no murmurs Abdomen: Normal bowel sounds, Soft, No tenderness, No hepatosplenomegaly, No masses Rectal Exam: not examined Extremities: No clubbing, No cyanosis, No edema, Normal pulses, No tenderness/swelling Skin: No rashes, No breakdown, No significant lesion Neuro: Normal tone, Sensation intact, Cranial nerves 3-12 NL, Reflexes 2+ Psych/Mental Status: Other (Drowsy) Vitals Vitals Vital Signs Date Time Temp Pulse Resp B/P (MAP) Pulse Ox O2 Delivery O2 Flow Rate FiO2 08/20/19 02:30 97.5 60 18 129/75 (93) 100 Room Air 97.5 Labs Labs Laboratory Tests Test 08/19/19 22:34 08/19/19 23:00 08/19/19 23:50 08/20/19 05:40 Glucose (Fingerstick) 147 mg/dL (70-99) Sodium Level 143 mmol/L (136-145) Potassium Level 3.9 mmol/L (3.5-5.1) Chloride Level 111 mmol/L (98-107) Carbon Dioxide Level 24 mmol/L (21-32) Anion Gap 8 (6-14) Blood Urea Nitrogen 20 mg/dL (8-26) Creatinine 2.0 mg/dL (0.7-1.3) Estimated GFR (Cockcroft-Gault) 39.8 BUN/Creatinine Ratio 10 (6-20) Glucose Level 168 mg/dL (70-99) Calcium Level 7.6 mg/dL (8.5-10.1) Total Bilirubin 0.1 mg/dL (0.2-1.0) Aspartate Amino Transf (AST/SGOT) 41 U/L (15-37) Alanine Aminotransferase (ALT/SGPT) 55 U/L (16-63) Alkaline Phosphatase 168 U/L (46-116) Troponin I Quantitative < 0.017 ng/mL (0.000-0.055) Total Protein 5.4 g/dL (6.4-8.2) Albumin 2.5 g/dL (3.4-5.0) Albumin/Globulin Ratio 0.9 (1.0-1.7) Lipase 167 U/L (73-393) Ethyl Alcohol Level < 10 mg/dL (0-10) Urine Collection Type Unknown Urine Color Yellow Urine Clarity Clear Urine pH 5.5 (<5.0-8.0) Urine Specific [place] 1.010 (1.000-1.030) Urine Protein Negative mg/dL (NEG-TRACE) Urine Glucose (UA) Negative mg/dL (NEG) Urine Ketones (Stick) Negative mg/dL (NEG) Urine Blood Negative (NEG) Urine Nitrite Negative (NEG) Urine Bilirubin Negative (NEG) Urine Urobilinogen Dipstick 0.2 mg/dL (0.2 mg/dL) Urine Leukocyte Esterase Negative (NEG) Urine RBC 0 /HPF (0-2) Urine WBC 0 /HPF (0-4) Urine Squamous Epithelial Cells Occ /LPF Urine Bacteria 0 /HPF (0-FEW) Urine Mucus Slight /LPF Urine Opiates Screen Pos (NEG) Urine Methadone Screen Neg (NEG) Urine Barbiturates Neg (NEG) Urine Phencyclidine Screen Neg (NEG) Urine Amphetamine/Methamphetamine Neg (NEG) Urine Benzodiazepines Screen Neg (NEG) Urine Cocaine Screen Neg (NEG) Urine Cannabinoids Screen Neg (NEG) Urine Ethyl Alcohol Neg (NEG) White Blood Count 7.5 x10^3/uL (4.0-11.0) Red Blood Count 3.63 x10^6/uL (4.30-5.70) Hemoglobin 9.9 g/dL (13.0-17.5) Hematocrit 30.3 % (39.0-53.0) Mean Corpuscular Volume 83 fL (79-100) Mean Corpuscular Hemoglobin 27 pg (25-35) Mean Corpuscular Hemoglobin Concent 33 g/dL (31-37) Red Cell Distribution Width 15.9 % (11.5-14.5) Platelet Count 252 x10^3/uL (140-400) Neutrophils (%) (Auto) 85 % (31-73) Lymphocytes (%) (Auto) 10 % (24-48) Monocytes (%) (Auto) 5 % (0-9) Eosinophils (%) (Auto) 0 % (0-3) Basophils (%) (Auto) 0 % (0-3) Neutrophils # (Auto) 6.3 x10^3/uL (1.8-7.7) Lymphocytes # (Auto) 0.8 x10^3/uL (1.0-4.8) Monocytes # (Auto) 0.4 x10^3/uL (0.0-1.1) Eosinophils # (Auto) 0.0 x10^3/uL (0.0-0.7) Basophils # (Auto) 0.0 x10^3/uL (0.0-0.2) Laboratory Tests Test 08/19/19 22:34 08/19/19 23:00 08/19/19 23:50 08/20/19 05:40 Glucose (Fingerstick) 147 mg/dL (70-99) Sodium Level 143 mmol/L (136-145) Potassium Level 3.9 mmol/L (3.5-5.1) Chloride Level 111 mmol/L (98-107) Carbon Dioxide Level 24 mmol/L (21-32) Anion Gap 8 (6-14) Blood Urea Nitrogen 20 mg/dL (8-26) Creatinine 2.0 mg/dL (0.7-1.3) Estimated GFR (Cockcroft-Gault) 39.8 BUN/Creatinine Ratio 10 (6-20) Glucose Level 168 mg/dL (70-99) Calcium Level 7.6 mg/dL (8.5-10.1) Total Bilirubin 0.1 mg/dL (0.2-1.0) Aspartate Amino Transf (AST/SGOT) 41 U/L (15-37) Alanine Aminotransferase (ALT/SGPT) 55 U/L (16-63) Alkaline Phosphatase 168 U/L (46-116) Troponin I Quantitative < 0.017 ng/mL (0.000-0.055) Total Protein 5.4 g/dL (6.4-8.2) Albumin 2.5 g/dL (3.4-5.0) Albumin/Globulin Ratio 0.9 (1.0-1.7) Lipase 167 U/L (73-393) Ethyl Alcohol Level < 10 mg/dL (0-10) Urine Collection Type Unknown Urine Color Yellow Urine Clarity Clear Urine pH 5.5 (<5.0-8.0) Urine Specific [place] 1.010 (1.000-1.030) Urine Protein Negative mg/dL (NEG-TRACE) Urine Glucose (UA) Negative mg/dL (NEG) Urine Ketones (Stick) Negative mg/dL (NEG) Urine Blood Negative (NEG) Urine Nitrite Negative (NEG) Urine Bilirubin Negative (NEG) Urine Urobilinogen Dipstick 0.2 mg/dL (0.2 mg/dL) Urine Leukocyte Esterase Negative (NEG) Urine RBC 0 /HPF (0-2) Urine WBC 0 /HPF (0-4) Urine Squamous Epithelial Cells Occ /LPF Urine Bacteria 0 /HPF (0-FEW) Urine Mucus Slight /LPF Urine Opiates Screen Pos (NEG) Urine Methadone Screen Neg (NEG) Urine Barbiturates Neg (NEG) Urine Phencyclidine Screen Neg (NEG) Urine Amphetamine/Methamphetamine Neg (NEG) Urine Benzodiazepines Screen Neg (NEG) Urine Cocaine Screen Neg (NEG) Urine Cannabinoids Screen Neg (NEG) Urine Ethyl Alcohol Neg (NEG) White Blood Count 7.5 x10^3/uL (4.0-11.0) Red Blood Count 3.63 x10^6/uL (4.30-5.70) Hemoglobin 9.9 g/dL (13.0-17.5) Hematocrit 30.3 % (39.0-53.0) Mean Corpuscular Volume 83 fL (79-100) Mean Corpuscular Hemoglobin 27 pg (25-35) Mean Corpuscular Hemoglobin Concent 33 g/dL (31-37) Red Cell Distribution Width 15.9 % (11.5-14.5) Platelet Count 252 x10^3/uL (140-400) Neutrophils (%) (Auto) 85 % (31-73) Lymphocytes (%) (Auto) 10 % (24-48) Monocytes (%) (Auto) 5 % (0-9) Eosinophils (%) (Auto) 0 % (0-3) Basophils (%) (Auto) 0 % (0-3) Neutrophils # (Auto) 6.3 x10^3/uL (1.8-7.7) Lymphocytes # (Auto) 0.8 x10^3/uL (1.0-4.8) Monocytes # (Auto) 0.4 x10^3/uL (0.0-1.1) Eosinophils # (Auto) 0.0 x10^3/uL (0.0-0.7) Basophils # (Auto) 0.0 x10^3/uL (0.0-0.2) Images Images CT Head: There is generalized parenchymal atrophy. Areas of decreased attenuation are seen within the periventricular and subcortical white matter of both cerebral hemispheres consistent with areas of small vessel ischemic disease. No acute parenchymal abnormality is seen. No extra-axial fluid collection is noted. No skull fracture is seen. Impression: No acute intracranial abnormality is seen. CXR: The cardiac silhouette is normal in size. The thoracic aorta is minimally tortuous. No acute pulmonary infiltrate is seen. No pleural effusion or pneumothorax is noted. Degenerative changes are seen involving the thoracic spine and both shoulders. Impression: No acute abnormality is seen. VTE Prophylaxis Ordered VTE Prophylaxis Devices: No VTE Pharmacological Prophylaxi: Yes Assessment/Plan Assessment/Plan A/P: Acute encephalopathy -likely multifactorial. Seems to be retaining urine. Also unclear which of his meds he took too many of. Given that he is opioid prescriptions will try Narcan and check an ABG possible CO2 retention. Consult psych as well WARD - likely vasomotor nephropathy. Will hydrate, encourage PO. Cont to monitor renal function Chronic pain - on ms contin and prn opioids during the day [facility]. Possibly took more than prescribed Hypertension - cont home meds Hyperlipidemia - statin BPH - seems to be retaining, will check PVR Dumping syndrome - s/p multiple abdominal surgeries Hypothyroidism - check TSH, cont meds and GERD Urinary retention - almost 400cc PVR. No urology available. Will try bethanechol FEN - GI soft PPX - heparin FULL CODE Dispo - inpatient for above, may be able to d/c if able to ambulate, urinate and is back to baseline, seems to have been accidental opioid overdose. Justicifation of Admission Dx: Justifications for Admission: Justification of Admission Dx: Yes ELISABETH DONG MD Aug 20, 2019 07:53
[2019-08-20] MEDS: MEMANTINE 10 MG TABLET. PO SCH ×2 (09:17→20:58)
[2019-08-20] MEDS: LEVOTHYROXINE 25 MCG TABLET. PO SCH (09:17)
[2019-08-20] MEDS: CETIRIZINE HCL 10 MG TABLET. PO SCH (09:18)
[2019-08-20] MEDS: PSYLLIUM HUSK (SUGAR FREE) 1 PKT PACKET PO SCH (09:18)
[2019-08-20] MEDS: POLYETHYLENE GLYCOL 3350 17 GM PACKET. PO SCH (09:18)
--- NOTE | 2019-08-20 10:02 | NUR ---
Patient alert to fact that he is in the hospital, stating "probably [facility]" Able to provide name and birthdate without hesitation. When asked about day, initially after some hesitation stated "Probably August", and for year stated "". No visitors with patient at this time. Patient related that he has difficulty eating due to history of ulcers and stomach bypass surgery, and needs a very bland soft diet.
[2019-08-20 11:00] VITALS: BP 118/65
[2019-08-20] MEDS ORDERED: OXYC5CAP PO (12:55)
[2019-08-20] MEDS ORDERED: MORP-15 PO (12:55)
--- NOTE | 2019-08-20 13:01 | NUR ---
SS following for discharge planning. SS reviewed pt chart and discussed with pt RN. Pt is from home with spouse and is currently on room air. SS will continue to follow for discharge planning.
[2019-08-20] MEDS ORDERED: NALOXONE 0.4 MG/ML VIAL. IV PRN (13:30)
[2019-08-20 13:34] LABS: BASE EXCESS ABG 1 mmol/L (-3-3); HCO3 ABG 26 mmol/L (21-28); PCO2 ABG 43 mmHg (35-46); PO2 ABG 93 mmHg (65-108); SAT O2 ABG 96 % (92-99)
[2019-08-20 13:36] LABS: FIO2 ABG 21
[2019-08-20 15:00] VITALS: BP 95/55
[2019-08-20] MEDS: BETHANECHOL CHLORIDE 10 MG TABLET. PO SCH ×2 (15:00→16:57)
[2019-08-20] MEDS: HEPARIN for SUB-Q USE 5,000 UNIT/ML VIAL. SQ SCH ×2 (15:06→20:59)
--- NOTE | 2019-08-20 17:17 | PDOC1 ---
History & Psych Evaluation Date of Admission: Date of Admission DATE: 08/20/19 TIME: 17:08 Source: Source: Caregiver, Chart review, Patient Identification: Identification He is a 74-year-old pleasant -Ind[place]ian gentleman admitted with altered mental status. Chief Complaint: Chief Complaint Altered mental status. History of Present Illness: HPI: He is a pleasant -Ind[place]ian gentleman reportedly without any history of psychiatric illness admitted with altered mental status. Patient is on multiple medication including narcotics. He was noticed by his . When seen, was sitting at the bedside. Stating, she did not know what did patient take however he was different and confused. When discussed with patient, he has no recollection of event. He appears confused and somewhat slow to process information. States, he just took his prescription medication but not sure might took additional doses. He has history of neurocognitive decline on d ementia medications. Aside from that, he denies depression, anxiety, previous history of psychiatric illness, auditory or visual hallucinations, suicidal or homicidal thoughts. No evidence of ledy or hypomania. Past Psychiatric History: Denies past psychiatric history of mental health issues, denies history of psychiatric hospital admission. No history of suicide or suicidal ideation. Denies history of self-harm behavior. Past Medical History: Please see medical chart for details. Family History: Denies family history of psychiatric illness or suicide. Social History: Social History: He lives with his . . Has grown up children. Denies tobacco use, excessive alcohol abuse, or illicit substance use. Denies legal issues Current Medications: Current Medications Current Medications Medications (Trade) Dose Ordered Sig/Kika Start Time Stop Time Status Last Admin Dose Admin Bethanechol Chloride (Urecholine) 10 mg TIDAC 08/20/19 14:00 08/20/19 16:57 10 MG Cetirizine HCl (ZyrTEC) 10 mg DAILY 08/20/19 09:00 08/20/19 09:18 10 MG Heparin Sodium (Porcine) (Heparin Sodium) 5,000 unit Q8HRS 08/20/19 14:00 08/20/19 15:06 5,000 UNIT Levothyroxine Sodium (Synthroid) 25 mcg DAILY06 08/20/19 09:00 08/20/19 09:17 25 MCG Memantine (Namenda) 10 mg BID 08/20/19 09:00 08/20/19 09:17 10 MG Mirtazapine (Remeron) 30 mg QHS 08/20/19 21:00 Naloxone HCl (Narcan) 0.4 mg PRN Q2MIN PRN 08/20/19 13:30 Ondansetron HCl (Zofran) 4 mg PRN Q4HRS PRN 08/20/19 08:00 Polyethylene Glycol (miraLAX PACKET) 17 gm DAILY 08/20/19 09:00 08/20/19 09:18 17 GM Psyllium Hydrophilic Mucilloid (Metamucil Fiber Packet) 1 pkt DAILY 08/20/19 09:00 08/20/19 09:18 1 PKT Tamsulosin HCl (Flomax) 0.4 mg HS 08/20/19 21:00 Allergies: Allergies: Coded Allergies: No Known Drug Allergies (Unverified , 09/05/13) Mental Status Examination: Mental Status Examination -Indonesian gentleman, pleasant, interactive Cooperative He is alert, oriented x2. Denies suicidal or homicidal thoughts. Denies auditory or visual hallucinations. No abnormal perceptions noted. Mood is fine Affect is euthymic Insight is fair Judgment is fair Impulse control is fair Attention span and concentration fair Patient memory is impaired, remote memory is intact. ROS: 14 point review of system is otherwise negative except for confusion. Physical Exam: Refer to Physician's note. PHYSICIAN OFFICE REP: No focal deficit MSK: No EPS, TDK, or abnormal involuntary movements Vitals: Vitals Vital Signs Date Time Temp Pulse Resp B/P (MAP) Pulse Ox O2 Delivery O2 Flow Rate FiO2 08/20/19 15:00 98.6 58 16 95/55 (68) 100 Room Air 98.6 Labs: Labs Laboratory Tests Test 08/19/19 22:34 08/19/19 23:00 08/19/19 23:50 08/20/19 05:40 Glucose (Fingerstick) 147 mg/dL (70-99) Sodium Level 143 mmol/L (136-145) Potassium Level 3.9 mmol/L (3.5-5.1) Chloride Level 111 mmol/L (98-107) Carbon Dioxide Level 24 mmol/L (21-32) Anion Gap 8 (6-14) Blood Urea Nitrogen 20 mg/dL (8-26) Creatinine 2.0 mg/dL (0.7-1.3) Estimated GFR (Cockcroft-Gault) 39.8 BUN/Creatinine Ratio 10 (6-20) Glucose Level 168 mg/dL (70-99) Calcium Level 7.6 mg/dL (8.5-10.1) Total Bilirubin 0.1 mg/dL (0.2-1.0) Aspartate Amino Transf (AST/SGOT) 41 U/L (15-37) Alanine Aminotransferase (ALT/SGPT) 55 U/L (16-63) Alkaline Phosphatase 168 U/L (46-116) Troponin I Quantitative < 0.017 ng/mL (0.000-0.055) Total Protein 5.4 g/dL (6.4-8.2) Albumin 2.5 g/dL (3.4-5.0) Albumin/Globulin Ratio 0.9 (1.0-1.7) Lipase 167 U/L (73-393) Ethyl Alcohol Level < 10 mg/dL (0-10) Urine Collection Type Unknown Urine Color Yellow Urine Clarity Clear Urine pH 5.5 (<5.0-8.0) Urine Specific [place] 1.010 (1.000-1.030) Urine Protein Negative mg/dL (NEG-TRACE) Urine Glucose (UA) Negative mg/dL (NEG) Urine Ketones (Stick) Negative mg/dL (NEG) Urine Blood Negative (NEG) Urine Nitrite Negative (NEG) Urine Bilirubin Negative (NEG) Urine Urobilinogen Dipstick 0.2 mg/dL (0.2 mg/dL) Urine Leukocyte Esterase Negative (NEG) Urine RBC 0 /HPF (0-2) Urine WBC 0 /HPF (0-4) Urine Squamous Epithelial Cells Occ /LPF Urine Bacteria 0 /HPF (0-FEW) Urine Mucus Slight /LPF Urine Opiates Screen Pos (NEG) Urine Methadone Screen Neg (NEG) Urine Barbiturates Neg (NEG) Urine Phencyclidine Screen Neg (NEG) Urine Amphetamine/Methamphetamine Neg (NEG) Urine Benzodiazepines Screen Neg (NEG) Urine Cocaine Screen Neg (NEG) Urine Cannabinoids Screen Neg (NEG) Urine Ethyl Alcohol Neg (NEG) White Blood Count 7.5 x10^3/uL (4.0-11.0) Red Blood Count 3.63 x10^6/uL (4.30-5.70) Hemoglobin 9.9 g/dL (13.0-17.5) Hematocrit 30.3 % (39.0-53.0) Mean Corpuscular Volume 83 fL (79-100) Mean Corpuscular Hemoglobin 27 pg (25-35) Mean Corpuscular Hemoglobin Concent 33 g/dL (31-37) Red Cell Distribution Width 15.9 % (11.5-14.5) Platelet Count 252 x10^3/uL (140-400) Neutrophils (%) (Auto) 85 % (31-73) Lymphocytes (%) (Auto) 10 % (24-48) Monocytes (%) (Auto) 5 % (0-9) Eosinophils (%) (Auto) 0 % (0-3) Basophils (%) (Auto) 0 % (0-3) Neutrophils # (Auto) 6.3 x10^3/uL (1.8-7.7) Lymphocytes # (Auto) 0.8 x10^3/uL (1.0-4.8) Monocytes # (Auto) 0.4 x10^3/uL (0.0-1.1) Eosinophils # (Auto) 0.0 x10^3/uL (0.0-0.7) Basophils # (Auto) 0.0 x10^3/uL (0.0-0.2) Vitamin B12 Level 452 pg/mL (247-911) Thyroid Stimulating Hormone (TSH) 0.312 uIU/mL (0.358-3.74) Test 08/20/19 13:30 O2 Saturation 96 % (92-99) Arterial Blood pH 7.40 (7.35-7.45) Arterial Blood pCO2 at Patient Temp 43 mmHg (35-46) Arterial Blood pO2 at Patient Temp 93 mmHg (65-108) Arterial Blood HCO3 26 mmol/L (21-28) Arterial Blood Base Excess 1 mmol/L (-3-3) FiO2 21 Laboratory Tests Test 08/19/19 22:34 08/19/19 23:00 08/19/19 23:50 08/20/19 05:40 Glucose (Fingerstick) 147 mg/dL (70-99) Sodium Level 143 mmol/L (136-145) Potassium Level 3.9 mmol/L (3.5-5.1) Chloride Level 111 mmol/L (98-107) Carbon Dioxide Level 24 mmol/L (21-32) Anion Gap 8 (6-14) Blood Urea Nitrogen 20 mg/dL (8-26) Creatinine 2.0 mg/dL (0.7-1.3) Estimated GFR (Cockcroft-Gault) 39.8 BUN/Creatinine Ratio 10 (6-20) Glucose Level 168 mg/dL (70-99) Calcium Level 7.6 mg/dL (8.5-10.1) Total Bilirubin 0.1 mg/dL (0.2-1.0) Aspartate Amino Transf (AST/SGOT) 41 U/L (15-37) Alanine Aminotransferase (ALT/SGPT) 55 U/L (16-63) Alkaline Phosphatase 168 U/L (46-116) Troponin I Quantitative < 0.017 ng/mL (0.000-0.055) Total Protein 5.4 g/dL (6.4-8.2) Albumin 2.5 g/dL (3.4-5.0) Albumin/Globulin Ratio 0.9 (1.0-1.7) Lipase 167 U/L (73-393) Ethyl Alcohol Level < 10 mg/dL (0-10) Urine Collection Type Unknown Urine Color Yellow Urine Clarity Clear Urine pH 5.5 (<5.0-8.0) Urine Specific [place] 1.010 (1.000-1.030) Urine Protein Negative mg/dL (NEG-TRACE) Urine Glucose (UA) Negative mg/dL (NEG) Urine Ketones (Stick) Negative mg/dL (NEG) Urine Blood Negative (NEG) Urine Nitrite Negative (NEG) Urine Bilirubin Negative (NEG) Urine Urobilinogen Dipstick 0.2 mg/dL (0.2 mg/dL) Urine Leukocyte Esterase Negative (NEG) Urine RBC 0 /HPF (0-2) Urine WBC 0 /HPF (0-4) Urine Squamous Epithelial Cells Occ /LPF Urine Bacteria 0 /HPF (0-FEW) Urine Mucus Slight /LPF Urine Opiates Screen Pos (NEG) Urine Methadone Screen Neg (NEG) Urine Barbiturates Neg (NEG) Urine Phencyclidine Screen Neg (NEG) Urine Amphetamine/Methamphetamine Neg (NEG) Urine Benzodiazepines Screen Neg (NEG) Urine Cocaine Screen Neg (NEG) Urine Cannabinoids Screen Neg (NEG) Urine Ethyl Alcohol Neg (NEG) White Blood Count 7.5 x10^3/uL (4.0-11.0) Red Blood Count 3.63 x10^6/uL (4.30-5.70) Hemoglobin 9.9 g/dL (13.0-17.5) Hematocrit 30.3 % (39.0-53.0) Mean Corpuscular Volume 83 fL (79-100) Mean Corpuscular Hemoglobin 27 pg (25-35) Mean Corpuscular Hemoglobin Concent 33 g/dL (31-37) Red Cell Distribution Width 15.9 % (11.5-14.5) Platelet Count 252 x10^3/uL (140-400) Neutrophils (%) (Auto) 85 % (31-73) Lymphocytes (%) (Auto) 10 % (24-48) Monocytes (%) (Auto) 5 % (0-9) Eosinophils (%) (Auto) 0 % (0-3) Basophils (%) (Auto) 0 % (0-3) Neutrophils # (Auto) 6.3 x10^3/uL (1.8-7.7) Lymphocytes # (Auto) 0.8 x10^3/uL (1.0-4.8) Monocytes # (Auto) 0.4 x10^3/uL (0.0-1.1) Eosinophils # (Auto) 0.0 x10^3/uL (0.0-0.7) Basophils # (Auto) 0.0 x10^3/uL (0.0-0.2) Vitamin B12 Level 452 pg/mL (247-911) Thyroid Stimulating Hormone (TSH) 0.312 uIU/mL (0.358-3.74) Test 08/20/19 13:30 O2 Saturation 96 % (92-99) Arterial Blood pH 7.40 (7.35-7.45) Arterial Blood pCO2 at Patient Temp 43 mmHg (35-46) Arterial Blood pO2 at Patient Temp 93 mmHg (65-108) Arterial Blood HCO3 26 mmol/L (21-28) Arterial Blood Base Excess 1 mmol/L (-3-3) FiO2 21 Diagnosis: Diagnosis: 1acute delirium, hypoactive, multifactorial including medications, underlying chronic microvascular changes, 2unspecified neurocognitive disorder, likely of vascular etiology. Rule out major neurocognitive disorder. Assessment: He is an elderly -Ind[place] gentleman with history of risk factors consistent with vascular dementia as evident from CT scan with chronic microvascular changes admitted with altered mental status. His altered mental status likely related to multiple etiologies including medications and his propensity for delirium due to vascular changes of white matter. He will get benefit from low-dose antipsychotic to resolve delirium. Plan: Start risperidone 0.5 mg twice daily for delirium resolution. Risk, benefits, alternatives of the treatment are discussed. He is in agreement with plan and voiced understanding. Adverse drug reactions of antipsychotics discussed. Monitor for mood, excessive sedation, EPS. Will titrate medications accordingly. Thank you for involving inpatient care. SALVADOR SWANSON MD Aug 20, 2019 17:17
[2019-08-20 19:35] VITALS: BP 115/57
[2019-08-20] MEDS: TAMSULOSIN 0.4 MG CAP.ER.24H. PO SCH (20:58)
[2019-08-20] MEDS: MIRTAZAPINE 15 MG TABLET PO SCH (20:58)
[2019-08-20 23:05] VITALS: BP 136/71
[2019-08-21 03:10] VITALS: BP 113/63
[2019-08-21] MEDS: LEVOTHYROXINE 25 MCG TABLET. PO SCH (06:00)
[2019-08-21 07:00] VITALS: BP 136/82
--- NOTE | 2019-08-21 07:55 | EKG ---
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
[2019-08-21] MEDS: CETIRIZINE HCL 10 MG TABLET. PO SCH (08:55)
[2019-08-21] MEDS: POLYETHYLENE GLYCOL 3350 17 GM PACKET. PO SCH (08:55)
[2019-08-21] MEDS: PSYLLIUM HUSK (SUGAR FREE) 1 PKT PACKET PO SCH (08:55)
[2019-08-21] MEDS: MEMANTINE 10 MG TABLET. PO SCH ×2 (08:55→20:24)
[2019-08-21] MEDS: BETHANECHOL CHLORIDE 10 MG TABLET. PO SCH ×3 (08:56→18:04)
[2019-08-21] MEDS: HEPARIN for SUB-Q USE 5,000 UNIT/ML VIAL. SQ SCH ×3 (09:08→20:25)
--- NOTE | 2019-08-21 10:06 | PDOC ---
PROGRESS NOTES Chief Complaint Chief Complaint VTE Prophylaxis Ordered VTE Prophylaxis Devices: No VTE Pharmacological Prophylaxi: Yes Assessment/Plan Assessment/Plan A/P: Acute encephalopathy -likely multifactorial. Seems to be retaining urine. Also unclear which of his meds he took too many of. Given that he is opioid prescriptions will try Narcan and check an ABG possible CO2 retention. Consult psych as well WARD - likely vasomotor nephropathy. Will hydrate, encourage PO. Cont to monitor renal function Chronic pain - on ms contin and prn opioids during the day [place]. Possibly took more than prescribed Hypertension - cont home meds Hyperlipidemia - statin BPH - seems to be retaining, will check PVR Dumping syndrome - s/p multiple abdominal surgeries Hypothyroidism - check TSH, cont meds and GERD Urinary retention - almost 400cc PVR. No urology available. Will try bethanechol neurocognitive decline on dementia medications FEN - GI soft PPX - heparin FULL CODE Dispo - inpatient for above, may be able to d/c if able to ambulate, urinate and is back to baseline, seems to have been accidental opioid overdose. 08/20 more alert today , will try PT/OT D/W RN Justicifation of Admission Dx: Justicifation of Admission Dx: Justifications for Admission: Justification of Admission Dx: Yes History of Present Illness History of Present Illness History of Present Illness History of Present Illness Mr Smith is a 74 M w/ PMHx hypertension hyperlipidemia, BPH, dumping syndrome, hypothyroidism, and GERD presents for evaluation of altered mental status. Approximately 30 minutes prior to arrival states she found patient to be altered. states symptoms started after patient took his evening medications on 08/19/2019, but she was in the laundry room. Patient states he only took his prescription medications. On exam patient is confused. He does seem somewhat drowsy. Patient states he has some epigastric discomfort and dysuria and pain on urination. No focal weakness appreciated. CT head and chest x-ray are negative for acute abnormalities EKG NSR. Labs, NA 143, K3.9, BUN 21, CR 2, glucose 168, albumin 2.5, troponin 0, WBC 7.5, Hb 9.9, platelets 252 Admitted for further care. During examination he has some twitching similar to dystonic reaction. He asks if he can get up. Then he begins mumbling and falls asleep. Vitals Vitals Vital Signs Date Time Temp Pulse Resp B/P (MAP) Pulse Ox O2 Delivery O2 Flow Rate FiO2 08/21/19 07:00 98.0 66 16 136/82 (100) 99 Room Air 98.0 Physical Exam General: Alert, Cooperative, mild distress Lungs: Clear Abdomen: Normal bowel sounds, Soft, No tenderness, No hepatosplenomegaly, No masses Extremities: No clubbing, No cyanosis, No edema, Normal pulses, No tenderness/swelling Skin: No rashes, No breakdown, No significant lesion Labs LABS Laboratory Tests Test 08/20/19 13:30 O2 Saturation 96 % (92-99) Arterial Blood pH 7.40 (7.35-7.45) Arterial Blood pCO2 at Patient Temp 43 mmHg (35-46) Arterial Blood pO2 at Patient Temp 93 mmHg (65-108) Arterial Blood HCO3 26 mmol/L (21-28) Arterial Blood Base Excess 1 mmol/L (-3-3) FiO2 21 Assessment and Plan Assessmemt and Plan Problems Medical Problems: (1) Altered mental status Status: Acute Comment Review of Relevant I have reviewed the following items va (where applicable) has been applied. Labs Laboratory Tests Test 08/19/19 22:34 08/19/19 23:00 08/19/19 23:50 08/20/19 05:40 Glucose (Fingerstick) 147 mg/dL (70-99) Sodium Level 143 mmol/L (136-145) Potassium Level 3.9 mmol/L (3.5-5.1) Chloride Level 111 mmol/L (98-107) Carbon Dioxide Level 24 mmol/L (21-32) Anion Gap 8 (6-14) Blood Urea Nitrogen 20 mg/dL (8-26) Creatinine 2.0 mg/dL (0.7-1.3) Estimated GFR (Cockcroft-Gault) 39.8 BUN/Creatinine Ratio 10 (6-20) Glucose Level 168 mg/dL (70-99) Calcium Level 7.6 mg/dL (8.5-10.1) Total Bilirubin 0.1 mg/dL (0.2-1.0) Aspartate Amino Transf (AST/SGOT) 41 U/L (15-37) Alanine Aminotransferase (ALT/SGPT) 55 U/L (16-63) Alkaline Phosphatase 168 U/L (46-116) Troponin I Quantitative < 0.017 ng/mL (0.000-0.055) Total Protein 5.4 g/dL (6.4-8.2) Albumin 2.5 g/dL (3.4-5.0) Albumin/Globulin Ratio 0.9 (1.0-1.7) Lipase 167 U/L (73-393) Ethyl Alcohol Level < 10 mg/dL (0-10) Urine Collection Type Unknown Urine Color Yellow Urine Clarity Clear Urine pH 5.5 (<5.0-8.0) Urine Specific [place] 1.010 (1.000-1.030) Urine Protein Negative mg/dL (NEG-TRACE) Urine Glucose (UA) Negative mg/dL (NEG) Urine Ketones (Stick) Negative mg/dL (NEG) Urine Blood Negative (NEG) Urine Nitrite Negative (NEG) Urine Bilirubin Negative (NEG) Urine Urobilinogen Dipstick 0.2 mg/dL (0.2 mg/dL) Urine Leukocyte Esterase Negative (NEG) Urine RBC 0 /HPF (0-2) Urine WBC 0 /HPF (0-4) Urine Squamous Epithelial Cells Occ /LPF Urine Bacteria 0 /HPF (0-FEW) Urine Mucus Slight /LPF Urine Opiates Screen Pos (NEG) Urine Methadone Screen Neg (NEG) Urine Barbiturates Neg (NEG) Urine Phencyclidine Screen Neg (NEG) Urine Amphetamine/Methamphetamine Neg (NEG) Urine Benzodiazepines Screen Neg (NEG) Urine Cocaine Screen Neg (NEG) Urine Cannabinoids Screen Neg (NEG) Urine Ethyl Alcohol Neg (NEG) White Blood Count 7.5 x10^3/uL (4.0-11.0) Red Blood Count 3.63 x10^6/uL (4.30-5.70) Hemoglobin 9.9 g/dL (13.0-17.5) Hematocrit 30.3 % (39.0-53.0) Mean Corpuscular Volume 83 fL (79-100) Mean Corpuscular Hemoglobin 27 pg (25-35) Mean Corpuscular Hemoglobin Concent 33 g/dL (31-37) Red Cell Distribution Width 15.9 % (11.5-14.5) Platelet Count 252 x10^3/uL (140-400) Neutrophils (%) (Auto) 85 % (31-73) Lymphocytes (%) (Auto) 10 % (24-48) Monocytes (%) (Auto) 5 % (0-9) Eosinophils (%) (Auto) 0 % (0-3) Basophils (%) (Auto) 0 % (0-3) Neutrophils # (Auto) 6.3 x10^3/uL (1.8-7.7) Lymphocytes # (Auto) 0.8 x10^3/uL (1.0-4.8) Monocytes # (Auto) 0.4 x10^3/uL (0.0-1.1) Eosinophils # (Auto) 0.0 x10^3/uL (0.0-0.7) Basophils # (Auto) 0.0 x10^3/uL (0.0-0.2) Vitamin B12 Level 452 pg/mL (247-911) Thyroid Stimulating Hormone (TSH) 0.312 uIU/mL (0.358-3.74) Test 08/20/19 13:30 O2 Saturation 96 % (92-99) Arterial Blood pH 7.40 (7.35-7.45) Arterial Blood pCO2 at Patient Temp 43 mmHg (35-46) Arterial Blood pO2 at Patient Temp 93 mmHg (65-108) Arterial Blood HCO3 26 mmol/L (21-28) Arterial Blood Base Excess 1 mmol/L (-3-3) FiO2 21 Laboratory Tests Test 08/20/19 13:30 O2 Saturation 96 % (92-99) Arterial Blood pH 7.40 (7.35-7.45) Arterial Blood pCO2 at Patient Temp 43 mmHg (35-46) Arterial Blood pO2 at Patient Temp 93 mmHg (65-108) Arterial Blood HCO3 26 mmol/L (21-28) Arterial Blood Base Excess 1 mmol/L (-3-3) FiO2 21 Medications Current Medications Ondansetron HCl (Zofran) 4 mg PRN Q8HRS PRN IV NAUSEA/VOMITING Last administered on 08/20/19at 05:19; Start 08/20/19 at 01:15; Stop 08/20/19 at 08:31; Status DC Ondansetron HCl (Zofran) 4 mg PRN Q4HRS PRN IV NAUSEA/VOMITING; Start 08/20/19 at 08:00 Cetirizine HCl (ZyrTEC) 10 mg DAILY PO Last administered on 08/21/19at 08:55; Start 08/20/19 at 09:00 Levothyroxine Sodium (Synthroid) 25 mcg DAILY06 PO Last administered on 08/20/19 09:17; Start 08/20/19 at 09:00 Memantine (Namenda) 10 mg BID PO Last administered on 08/21/19at 08:55; Start 08/20/19 at 09:00 Tamsulosin HCl (Flomax) 0.4 mg HS PO Last administered on 08/20/19 20:58; Start 08/20/19 at 21:00 Mirtazapine (Remeron) 30 mg QHS PO Last administered on 08/20/19 20:58; Start 08/20/19 at 21:00 Heparin Sodium (Porcine) (Heparin Sodium) 5,000 unit Q8HRS SQ Last administered on 08/21/19 09:08; Start 08/20/19 at 14:00 Psyllium Hydrophilic Mucilloid (Metamucil Fiber Packet) 1 pkt DAILY PO Last a dministered on 08/21/19 08:55; Start 08/20/19 at 09:00 Polyethylene Glycol (miraLAX PACKET) 17 gm DAILY PO Last administered on 08/21/19 08:55; Start 08/20/19 at 09:00 Naloxone HCl (Narcan) 0.4 mg PRN Q2MIN PRN IV SEE COMMENTS; Start 08/20/19 at 13:30 Bethanechol Chloride (Urecholine) 10 mg TIDAC PO Last administered on 08/21/19 08:56; Start 08/20/19 at 14:00 Active Scripts Active Reported Oxycodone Hcl 5 Mg Capsule 5 Mg PO PRN Q8HRS PRN Morphine Sulfate Er (Morphine Sulfate) 15 Mg Tablet.er 1 Tab PO BID Vitamin D2 (Ergocalciferol (Vitamin D2)) 1,250 Mcg Capsule 1,250 Mcg PO DAILY Namenda (Memantine Hcl) 10 Mg Tablet 10 Mg PO BID Remeron (Mirtazapine) 30 Mg Tab.rapdis 30 Mg PO HS Flomax (Tamsulosin Hcl) 0.4 Mg Cap.er.24h 0.4 Mg PO HS Aricept (Donepezil Hcl) 10 Mg Tablet 10 Mg PO HS Lasix (Furosemide) 20 Mg Tablet 20 Mg PO DAILY Synthroid (Levothyroxine Sodium) 25 Mcg Tablet 25 Mcg PO DAILYAC Zyrtec (Cetirizine Hcl) 10 Mg Tablet 10 Mg PO DAILY Vitals/I & O Vital Sign - Last 24 Hours 08/20/19 08/20/19 08/20/19 08/20/19 11:00 15:00 19:35 21:04 Temp 98.5 98.6 97.7 98.5 98.6 97.7 Pulse 52 58 50 Resp 16 16 18 B/P (MAP) 118/65 (82) 95/55 (68) 115/57 (76) Pulse Ox 97 100 100 O2 Delivery Room Air Room Air Room Air Room Air 08/20/19 08/21/19 08/21/19 23:05 03:10 07:00 Temp 98.0 98.1 98.0 98.0 98.1 98.0 Pulse 68 53 66 Resp 18 18 16 B/P (MAP) 136/71 (92) 113/63 (80) 136/82 (100) Pulse Ox 100 100 99 O2 Delivery Room Air Room Air Room Air Intake and Output 08/20/19 08/20/19 08/21/19 15:00 23:00 07:00 Intake Total 100 ml 100 ml 300 ml Output Total 560 ml 760 ml Balance -460 ml -660 ml 300 ml Justicifation of Admission Dx: Justifications for Admission: Justification of Admission Dx: Yes ELAINE IVERSON MD Aug 21, 2019 10:06
[2019-08-21 11:00] VITALS: BP 118/71
--- NOTE | 2019-08-21 11:49 | NUR ---
SS following up with discharge planning. SS reviewed pt chart and discussed with pt RN. PT recommended home independent. Pt is currently on room air. Per RN, possible discharge to home today. SS will continue to follow for discharge planning.
[2019-08-21 14:16] LABS: CALCIUM 7.9 mg/dL (8.5-10.1); CREATININE 1.9 mg/dL (0.7-1.3); GFR 42.3; POTASSIUM 4.4 mmol/L (3.5-5.1)
[2019-08-21 15:00] VITALS: BP 116/75
--- NOTE | 2019-08-21 15:52 | NUR ---
and patient relate that Mr Smith would like to be discharged home, that he is back to baseline. Patient denies pain with urination at this time, abd soft. Patient has had 2 bms today. Pt up with supervision, gait steady, denies dizziness.
[2019-08-21 19:45] VITALS: BP 127/70
[2019-08-21] MEDS: TAMSULOSIN 0.4 MG CAP.ER.24H. PO SCH (20:24)
[2019-08-21] MEDS: MIRTAZAPINE 15 MG TABLET PO SCH (20:24)
--- NOTE | 2019-08-21 22:30 | RAD ---
Exam: Ultrasound renal complete Indication: Acute renal and Technique: Real-time grayscale and color Doppler images of the kidneys were obtained by the department getterer. Comparisons: None FINDINGS: Right kidney measures 9.2 cm in length. No hydronephrosis. Left kidney measures 7.9 cm in length. No hydronephrosis. Bladder is partially distended and appears unremarkable. Visualized portions of aorta and IVC are unremarkable. IMPRESSION: No hydronephrosis. Electronically signed by: Cherie Cid MD (08/21/2019 10:27 PM) [id number]
[2019-08-21 22:45] VITALS: BP 116/65
[2019-08-22 03:15] VITALS: BP 112/54
[2019-08-22] MEDS: LEVOTHYROXINE 25 MCG TABLET. PO SCH (06:04)
[2019-08-22] MEDS: HEPARIN for SUB-Q USE 5,000 UNIT/ML VIAL. SQ SCH ×2 (06:06→14:05)
[2019-08-22 06:09] VITALS: BP 132/72
[2019-08-22] MEDS: BETHANECHOL CHLORIDE 10 MG TABLET. PO SCH ×3 (07:58→16:35)
[2019-08-22 08:14] LABS: ALBUMIN 1.8 g/dL (3.4-5.0); CALCIUM 7.5 mg/dL (8.5-10.1); CREATININE 1.5 mg/dL (0.7-1.3); GFR 55.5; PHOSPHORUS 2.8 mg/dL (2.6-4.7); POTASSIUM 3.9 mmol/L (3.5-5.1)
[2019-08-22] MEDS: MEMANTINE 10 MG TABLET. PO SCH (08:52)
[2019-08-22] MEDS: CETIRIZINE HCL 10 MG TABLET. PO SCH (08:52)
[2019-08-22] MEDS: POLYETHYLENE GLYCOL 3350 17 GM PACKET. PO SCH (08:52)
[2019-08-22] MEDS: PSYLLIUM HUSK (SUGAR FREE) 1 PKT PACKET PO SCH (08:52)
--- NOTE | 2019-08-22 08:53 | PDOC ---
PROGRESS NOTES Chief Complaint Chief Complaint VTE Prophylaxis Ordered VTE Prophylaxis Devices: No VTE Pharmacological Prophylaxi: Yes DISCHARGE DX Assessment/Plan A/P: Acute encephalopathy -likely multifactorial. Seems to be retaining urine. Also unclear which of his meds he took too many of. Given that he is opioid prescriptions will try Narcan and check an ABG possible CO2 retention. Consult psych as well WARD - likely vasomotor nephropathy. Will hydrate, encourage PO. Cont to monitor renal function Chronic pain - on ms contin and prn opioids during the day [employer]. Possibly took more than prescribed Hypertension - cont home meds Hyperlipidemia - statin BPH - seems to be retaining, will check PVR Dumping syndrome - s/p multiple abdominal surgeries Hypothyroidism - check TSH, cont meds and GERD Urinary retention - almost 400cc PVR. No urology available. Will try bethanechol neurocognitive decline on dementia medications FEN - GI soft PPX - heparin FULL CODE Dispo - inpatient for above, may be able to d/c if able to ambulate, urinate and is back to baseline, seems to have been accidental opioid overdose. 08/20 more alert today , will try PT/OT 08/21 wants to go home, thinks he is at baseline, agrees D/W RN d/c planning 25 min Justicifation of Admission Dx: Justicifation of Admission Dx: Justifications for Admission: Justification of Admission Dx: Yes History of Present Illness History of Present Illness History of Present Illness History of Present Illness Mr Smith is a 74 M w/ PMHx hypertension hyperlipidemia, BPH, dumping syndrome, hypothyroidism, and GERD presents for evaluation of altered mental status. Approximately 30 minutes prior to arrival states she found patient to be altered. states symptoms started after patient took his evening medications on 08/19/2019, but she was in the laundry room. Patient states he only took his prescription medications. On exam patient is confused. He does seem somewhat drowsy. Patient states he has some epigastric discomfort and dysuria and pain on urination. No focal weakness appreciated. CT head and chest x-ray are negative for acute abnormalities EKG NSR. Labs, NA 143, K3.9, BUN 21, CR 2, glucose 168, albumin 2.5, troponin 0, WBC 7.5, Hb 9.9, platelets 252 Admitted for further care. During examination he has some twitching similar to dystonic reaction. He asks if he can get up. Then he begins mumbling and falls asleep. Vitals Vitals Vital Signs Date Time Temp Pulse Resp B/P (MAP) Pulse Ox O2 Delivery O2 Flow Rate FiO2 08/22/19 06:09 55 16 132/72 (92) 98 Room Air 08/22/19 03:15 98.4 98.4 Physical Exam General: Alert, Oriented X3, Cooperative, mild distress Heart: Regular rate Lungs: Clear Abdomen: Normal bowel sounds, Soft, No tenderness, No hepatosplenomegaly, No masses Extremities: No clubbing, No cyanosis, No edema, Normal pulses, No tenderness/swelling Skin: No rashes, No breakdown, No significant lesion Labs LABS Laboratory Tests Test 08/21/19 13:48 08/22/19 06:30 Sodium Level 144 mmol/L (136-145) 144 mmol/L (136-145) Potassium Level 4.4 mmol/L (3.5-5.1) 3.9 mmol/L (3.5-5.1) Chloride Level 111 mmol/L (98-107) 112 mmol/L (98-107) Carbon Dioxide Level 26 mmol/L (21-32) 29 mmol/L (21-32) Anion Gap 7 (6-14) 3 (6-14) Blood Urea Nitrogen 15 mg/dL (8-26) 14 mg/dL (8-26) Creatinine 1.9 mg/dL (0.7-1.3) 1.5 mg/dL (0.7-1.3) Estimated GFR (Cockcroft-Gault) 42.3 55.5 Glucose Level 125 mg/dL (70-99) 89 mg/dL (70-99) Calcium Level 7.9 mg/dL (8.5-10.1) 7.5 mg/dL (8.5-10.1) Iron Level 72 ug/dL (65-175) Total Iron Binding Capacity 361 ug/dL (250-450) Iron Saturation 20 % (15-34) Free Thyroxine 0.85 ng/dL (0.76-1.46) Phosphorus Level 2.8 mg/dL (2.6-4.7) Albumin 1.8 g/dL (3.4-5.0) Assessment and Plan Assessmemt and Plan Problems Medical Problems: (1) Altered mental status Status: Acute Comment Review of Relevant I have reviewed the following items va (where applicable) has been applied. Labs Laboratory Tests Test 08/20/19 13:30 08/21/19 13:48 08/22/19 06:30 O2 Saturation 96 % (92-99) Arterial Blood pH 7.40 (7.35-7.45) Arterial Blood pCO2 at Patient Temp 43 mmHg (35-46) Arterial Blood pO2 at Patient Temp 93 mmHg (65-108) Arterial Blood HCO3 26 mmol/L (21-28) Arterial Blood Base Excess 1 mmol/L (-3-3) FiO2 21 Sodium Level 144 mmol/L (136-145) 144 mmol/L (136-145) Potassium Level 4.4 mmol/L (3.5-5.1) 3.9 mmol/L (3.5-5.1) Chloride Level 111 mmol/L (98-107) 112 mmol/L (98-107) Carbon Dioxide Level 26 mmol/L (21-32) 29 mmol/L (21-32) Anion Gap 7 (6-14) 3 (6-14) Blood Urea Nitrogen 15 mg/dL (8-26) 14 mg/dL (8-26) Creatinine 1.9 mg/dL (0.7-1.3) 1.5 mg/dL (0.7-1.3) Estimated GFR (Cockcroft-Gault) 42.3 55.5 Glucose Level 125 mg/dL (70-99) 89 mg/dL (70-99) Calcium Level 7.9 mg/dL (8.5-10.1) 7.5 mg/dL (8.5-10.1) Iron Level 72 ug/dL (65-175) Total Iron Binding Capacity 361 ug/dL (250-450) Iron Saturation 20 % (15-34) Free Thyroxine 0.85 ng/dL (0.76-1.46) Phosphorus Level 2.8 mg/dL (2.6-4.7) Albumin 1.8 g/dL (3.4-5.0) Laboratory Tests Test 08/21/19 13:48 08/22/19 06:30 Sodium Level 144 mmol/L (136-145) 144 mmol/L (136-145) Potassium Level 4.4 mmol/L (3.5-5.1) 3.9 mmol/L (3.5-5.1) Chloride Level 111 mmol/L (98-107) 112 mmol/L (98-107) Carbon Dioxide Level 26 mmol/L (21-32) 29 mmol/L (21-32) Anion Gap 7 (6-14) 3 (6-14) Blood Urea Nitrogen 15 mg/dL (8-26) 14 mg/dL (8-26) Creatinine 1.9 mg/dL (0.7-1.3) 1.5 mg/dL (0.7-1.3) Estimated GFR (Cockcroft-Gault) 42.3 55.5 Glucose Level 125 mg/dL (70-99) 89 mg/dL (70-99) Calcium Level 7.9 mg/dL (8.5-10.1) 7.5 mg/dL (8.5-10.1) Iron Level 72 ug/dL (65-175) Total Iron Binding Capacity 361 ug/dL (250-450) Iron Saturation 20 % (15-34) Free Thyroxine 0.85 ng/dL (0.76-1.46) Phosphorus Level 2.8 mg/dL (2.6-4.7) Albumin 1.8 g/dL (3.4-5.0) Medications Current Medications Ondansetron HCl (Zofran) 4 mg PRN Q8HRS PRN IV NAUSEA/VOMITING Last administered on 08/20/19at 05:19; Start 08/20/19 at 01:15; Stop 08/20/19 at 08:31; Status DC Ondansetron HCl (Zofran) 4 mg PRN Q4HRS PRN IV NAUSEA/VOMITING; Start 08/20/19 at 08:00 Cetirizine HCl (ZyrTEC) 10 mg DAILY PO Last administered on 08/22/19at 08:52; Start 08/20/19 at 09:00 Levothyroxine Sodium (Synthroid) 25 mcg DAILY06 PO Last administered on 08/22/19at 06:04; Start 08/20/19 at 09:00 Memantine (Namenda) 10 mg BID PO Last administered on 08/22/19at 08:52; Start 08/20/19 at 09:00 Tamsulosin HCl (Flomax) 0.4 mg HS PO Last administered on 08/21/19at 20:24; Start 08/20/19 at 21:00 Mirtazapine (Remeron) 30 mg QHS PO Last administered on 08/21/19at 20:24; Start 08/20/19 at 21:00 Heparin Sodium (Porcine) (Heparin Sodium) 5,000 unit Q8HRS SQ Last administered on 08/22/19at 06:06; Start 08/20/19 at 14:00 Psyllium Hydrophilic Mucilloid (Metamucil Fiber Packet) 1 pkt DAILY PO Last administered on 08/22/19at 08:52; Start 08/20/19 at 09:00 Polyethylene Glycol (miraLAX PACKET) 17 gm DAILY PO Last administered on 08/21/19at 08:55; Start 08/20/19 at 09:00 Naloxone HCl (Narcan) 0.4 mg PRN Q2MIN PRN IV SEE COMMENTS; Start 08/20/19 at 13:30 Bethanechol Chloride (Urecholine) 10 mg TIDAC PO Last administered on 08/22/19at 07:58; Start 08/20/19 at 14:00 Active Scripts Active Reported Oxycodone Hcl 5 Mg Capsule 5 Mg PO PRN Q8HRS PRN Morphine Sulfate Er (Morphine Sulfate) 15 Mg Tablet.er 1 Tab PO BID Vitamin D2 (Ergocalciferol (Vitamin D2)) 1,250 Mcg Capsule 1,250 Mcg PO DAILY Namenda (Memantine Hcl) 10 Mg Tablet 10 Mg PO BID Remeron (Mirtazapine) 30 Mg Tab.rapdis 30 Mg PO HS Flomax (Tamsulosin Hcl) 0.4 Mg Cap.er.24h 0.4 Mg PO HS Aricept (Donepezil Hcl) 10 Mg Tablet 10 Mg PO HS Lasix (Furosemide) 20 Mg Tablet 20 Mg PO DAILY Synthroid (Levothyroxine Sodium) 25 Mcg Tablet 25 Mcg PO DAILYAC Zyrtec (Cetirizine Hcl) 10 Mg Tablet 10 Mg PO DAILY Vitals/I & O Vital Sign - Last 24 Hours 08/21/19 08/21/19 08/21/19 08/21/19 11:00 15:00 19:45 20:11 Temp 98.4 98.3 98.1 98.4 98.3 98.1 Pulse 56 57 54 Resp 16 16 18 B/P (MAP) 118/71 (87) 116/75 (89) 127/70 (89) Pulse Ox 97 98 100 O2 Delivery Room Air Room Air Room Air Room Air 08/21/19 08/22/19 08/22/19 22:45 03:15 06:09 Temp 98.8 98.4 98.8 98.4 Pulse 65 56 55 Resp 18 18 16 B/P (MAP) 116/65 (82) 112/54 (73) 132/72 (92) Pulse Ox 99 97 98 O2 Delivery Room Air Room Air Room Air Intake and Output 08/21/19 08/21/19 08/22/19 15:00 23:00 07:00 Intake Total 200 ml 200 ml Output Total 0 ml 75 ml Balance 0 ml 125 ml 200 ml Justicifation of Admission Dx: Justifications for Admission: Justification of Admission Dx: Yes ELAINE IVERSON MD Aug 22, 2019 08:53
--- NOTE | 2019-08-22 09:45 | PDOC2 ---
CONSULT Date of Consult Date of Consult DATE: 08/22/19 TIME: 09:41 Reason for Consult Reason for Consult: CKD Identification/Chief Complaint Chief Complaint No complaints currently Source Source: Chart review, Patient History of Present Illness Reason for Visit: Poor Historian Pt is a 74 AAM w/ PMHx hypertension BPH, dumping syndrome, hypothyroidism, and GERD presents for evaluation of altered mental status. Approximately 30 minutes prior to arrival reported she found patient to be altered. Symptoms started after patient took his evening medications on 08/19/2019 . Patient states he only took his prescription medications. At presentation he was confused and somewhat drowsy, had some twitching . He complained of some epigastric discomfort and dysuria and pain on urination. No N/V/D. Denies SOB or CP. No F/C reported . He takes NSAID's at home, unable to give details He states his PCP id Dr. Arroyo and thinks he follows with Nephrology as well but is not sure and he is not aware anything is wrong with his kidneys Currently denies any urinary complaints,denies any flank or SP pain. No Other complaints CT head and chest x-ray are negative for acute abnormalities Past Medical History Cardiovascular: HTN, Hyperlipidemia GI: GERD, GI bleed, Gastritis Renal/: Benign prostatic enlarg. Past Surgical History Past Surgical History: Appendectomy, Cholecystectomy, Colon Resection, Other (Gastric bypass) Family History Family History: Diabetes Social History No ALCOHOL: none Drugs: None Current Problem List Problem List Problems Medical Problems: (1) Altered mental status Status: Acute Current Medications Current Medications Current Medications Ondansetron HCl (Zofran) 4 mg PRN Q8HRS PRN IV NAUSEA/VOMITING Last admini stered on 08/20/19at 05:19; Start 08/20/19 at 01:15; Stop 08/20/19 at 08:31; Status DC Ondansetron HCl (Zofran) 4 mg PRN Q4HRS PRN IV NAUSEA/VOMITING; Start 08/20/19 at 08:00 Cetirizine HCl (ZyrTEC) 10 mg DAILY PO Last administered on 08/22/19at 08:52; S tart 08/20/19 at 09:00 Levothyroxine Sodium (Synthroid) 25 mcg DAILY06 PO Last administered on 08/22/19at 06:04; Start 08/20/19 at 09:00 Memantine (Namenda) 10 mg BID PO Last administered on 08/22/19at 08:52; Start 08/20/19 at 09:00 Tamsulosin HCl (Flomax) 0.4 mg HS PO Last administered on 08/21/19at 20:24; Start 08/20/19 at 21:00 Mirtazapine (Remeron) 30 mg QHS PO Last administered on 08/21/19at 20:24; Start 08/20/19 at 21:00 Heparin Sodium (Porcine) (Heparin Sodium) 5,000 unit Q8HRS SQ Last administered on 08/22/19at 06:06; Start 08/20/19 at 14:00 Psyllium Hydrophilic Mucilloid (Metamucil Fiber Packet) 1 pkt DAILY PO Last administered on 08/22/19at 08:52; Start 08/20/19 at 09:00 Polyethylene Glycol (miraLAX PACKET) 17 gm DAILY PO Last administered on at 08:55; Start 08/20/19 at 09:00 Naloxone HCl (Narcan) 0.4 mg PRN Q2MIN PRN IV SEE COMMENTS; Start 08/20/19 at 13:30 Bethanechol Chloride (Urecholine) 10 mg TIDAC PO Last administered on 08/22/19at 07:58; Start 08/20/19 at 14:00 Active Scripts Active Reported Oxycodone Hcl 5 Mg Capsule 5 Mg PO PRN Q8HRS PRN Morphine Sulfate Er (Morphine Sulfate) 15 Mg Tablet.er 1 Tab PO BID Vitamin D2 (Ergocalciferol (Vitamin D2)) 1,250 Mcg Capsule 1,250 Mcg PO DAILY Namenda (Memantine Hcl) 10 Mg Tablet 10 Mg PO BID Remeron (Mirtazapine) 30 Mg Tab.rapdis 30 Mg PO HS Flomax (Tamsulosin Hcl) 0.4 Mg Cap.er.24h 0.4 Mg PO HS Aricept (Donepezil Hcl) 10 Mg Tablet 10 Mg PO HS Lasix (Furosemide) 20 Mg Tablet 20 Mg PO DAILY Synthroid (Levothyroxine Sodium) 25 Mcg Tablet 25 Mcg PO DAILYAC Zyrtec (Cetirizine Hcl) 10 Mg Tablet 10 Mg PO DAILY Allergies Allergies: Coded Allergies: No Known Drug Allergies (Unverified , 09/05/13) ROS Review of System Per HPI, rest 12 point ROS is negative Physical Exam Physical Exam General: NAD HEENT: OM moist Neck supple Lungs: Clear to auscultation , Non labored Heart: S1S2, Abdomen: Soft, No tenderness, No hepatosplenomegaly Extremities: No clubbing, No cyanosis, No edema Skin: No rashes Neuro: Grossly normal , No Ruff, No CVA or SP tenderness Vital Signs Vital Signs Date Time Temp Pulse Resp B/P (MAP) Pulse Ox O2 Delivery O2 Flow Rate FiO2 08/22/19 06:09 55 16 132/72 (92) 98 Room Air 08/22/19 03:15 98.4 98.4 Assessment & Plan WARD - suspect Vasomotor Cr improving 2.0--> 1.5 , based on Labs from [facility] records probably back to baseline E-Lytes stable, UA unremarkable, Renal US unremarkable Bladder scan x2 No PVR Supportive care, strict I/O, Avoid nephrotoxins (he takes NSAID at home ) CKD stage 3 - based on lab review from [facility] records Baseline Cr 1.5-1.8 Acute encephalopathy he is opioid prescriptions , Improved 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 Hypertension - cont home meds BPH - Partial distension on US, Bladder scan x2 No PVR per RN Per Primary almost 400cc PVR, No Urology available Dumping syndrome - s/p multiple abdominal surgeries Labs Labs Laboratory Tests Test 08/20/19 13:30 08/21/19 13:48 08/22/19 06:30 O2 Saturation 96 % (92-99) Arterial Blood pH 7.40 (7.35-7.45) Arterial Blood pCO2 at Patient Temp 43 mmHg (35-46) Arterial Blood pO2 at Patient Temp 93 mmHg (65-108) Arterial Blood HCO3 26 mmol/L (21-28) Arterial Blood Base Excess 1 mmol/L (-3-3) FiO2 21 Sodium Level 144 mmol/L (136-145) 144 mmol/L (136-145) Potassium Level 4.4 mmol/L (3.5-5.1) 3.9 mmol/L (3.5-5.1) Chloride Level 111 mmol/L (98-107) 112 mmol/L (98-107) Carbon Dioxide Level 26 mmol/L (21-32) 29 mmol/L (21-32) Anion Gap 7 (6-14) 3 (6-14) Blood Urea Nitrogen 15 mg/dL (8-26) 14 mg/dL (8-26) Creatinine 1.9 mg/dL (0.7-1.3) 1.5 mg/dL (0.7-1.3) Estimated GFR (Cockcroft-Gault) 42.3 55.5 Glucose Level 125 mg/dL (70-99) 89 mg/dL (70-99) Calcium Level 7.9 mg/dL (8.5-10.1) 7.5 mg/dL (8.5-10.1) Iron Level 72 ug/dL (65-175) Total Iron Binding Capacity 361 ug/dL (250-450) Iron Saturation 20 % (15-34) Free Thyroxine 0.85 ng/dL (0.76-1.46) Phosphorus Level 2.8 mg/dL (2.6-4.7) Albumin 1.8 g/dL (3.4-5.0) Laboratory Tests Test 08/21/19 13:48 08/22/19 06:30 Sodium Level 144 mmol/L (136-145) 144 mmol/L (136-145) Potassium Level 4.4 mmol/L (3.5-5.1) 3.9 mmol/L (3.5-5.1) Chloride Level 111 mmol/L (98-107) 112 mmol/L (98-107) Carbon Dioxide Level 26 mmol/L (21-32) 29 mmol/L (21-32) Anion Gap 7 (6-14) 3 (6-14) Blood Urea Nitrogen 15 mg/dL (8-26) 14 mg/dL (8-26) Creatinine 1.9 mg/dL (0.7-1.3) 1.5 mg/dL (0.7-1.3) Estimated GFR (Cockcroft-Gault) 42.3 55.5 Glucose Level 125 mg/dL (70-99) 89 mg/dL (70-99) Calcium Level 7.9 mg/dL (8.5-10.1) 7.5 mg/dL (8.5-10.1) Iron Level 72 ug/dL (65-175) Total Iron Binding Capacity 361 ug/dL (250-450) Iron Saturation 20 % (15-34) Free Thyroxine 0.85 ng/dL (0.76-1.46) Phosphorus Level 2.8 mg/dL (2.6-4.7) Albumin 1.8 g/dL (3.4-5.0) Review All relevant outside records, renal labs, imaging studies, telemetry/EKG's were reviewed. KARLEE CAMP MD Aug 22, 2019 09:44
[2019-08-22 11:00] VITALS: BP 129/67
--- NOTE | 2019-08-22 13:06 | NUR ---
SS following up with discharge planning. SS reviewed pt chart and discussed with pt RN. Pt is currently on room air. PT recommended home independent. Possible discharge to home today. SS will continue to follow for discharge planning.
--- NOTE | 2019-08-22 14:54 | PDOC3 ---
Discharge Summary Date of Admission: Aug 20, 2019 Date of Discharge: Aug 22, 2019 Follow-Up: 3-5 days Admitting Diagnosis comment: DISCHARGE DX Assessment/Plan A/P: Acute encephalopathy -likely multifactorial. Seems to be retaining urine. Also unclear which of his meds he took too many of. Given that he is opioid prescriptions will try Narcan and check an ABG possible CO2 retention. Consult psych as well WARD - likely vasomotor nephropathy. Will hydrate, encourage PO. Cont to monitor renal function Chronic pain - on ms contin and prn opioids during the day skilled nursing. Possibly took more than prescribed Hypertension - cont home meds Hyperlipidemia - statin BPH - seems to be retaining, will check PVR Dumping syndrome - s/p multiple abdominal surgeries Hypothyroidism - check TSH, cont meds and GERD Urinary retention - almost 400cc PVR. No urology available. Will try bethanechol neurocognitive decline on dementia medications FEN - GI soft PPX - heparin FULL CODE Dispo - inpatient for above, may be able to d/c if able to ambulate, urinate and is back to baseline, seems to have been accidental opioid overdose. 08/20 more alert today , will try PT/OT 08/21 wants to go home, thinks he is at baseline, agrees D/W RN d/c planning 25 min Justicifation of Admission Dx: Justicifation of Admission Dx: Justifications for Admission: Justification of Admission Dx: Yes History of Present Illness History of Present Illness History of Present Illness History of Present Illness Mr Smith is a 74 M w/ PMHx hypertension hyperlipidemia, BPH, dumping syndrome, hypothyroidism, and GERD presents for evaluation of altered mental status. Approximately 30 minutes prior to arrival states she found patient to be altered. states symptoms started after patient took his evening medications on 08/19/2019, but she was in the laundry room. Patient states he only took his prescription medications. On exam patient is confused. He does seem somewhat drowsy. Patient states he has some epigastric discomfort and dysuria and pain on urination. No focal weakness appreciated. CT head and chest x-ray are negative for acute abnormalities EKG NSR. Labs, NA 143, K3.9, BUN 21, CR 2, glucose 168, albumin 2.5, troponin 0, WBC 7.5, Hb 9.9, platelets 252 Admitted for further care. During examination he has some twitching similar to dystonic reaction. He asks if he can get up. Then he begins mumbling and falls asleep. Vitals Vitals Vital Signs Date Time Temp Pulse Resp B/P (MAP) Pulse Ox O2 Delivery O2 Flow Rate FiO2 08/22/19 06:09 55 16 132/72 (92) 98 Room Air 08/22/19 03:15 98.4 98.4 Physical Exam General: Alert, Oriented X3, Cooperative, NO distress Heart: Regular rate Lungs: Clear Abdomen: Normal bowel sounds, Soft, No tenderness, No hepatosplenomegaly, No masses Extremities: No clubbing, No cyanosis, No edema, Normal pulses, No tender ness/swelling Skin: No rashes, No breakdown, No significant lesion FINAL DIAGNOSIS Problems Medical Problems: (1) Altered mental status Status: Acute Brief Hospital Course Mr. Smith is a 74 old [sex] who presented with [ ALTERED MENTATION ] CONDITION AT DISCHARGE: Improved Discharge Medications Current Medications Ondansetron HCl (Zofran) 4 mg PRN Q8HRS PRN IV NAUSEA/VOMITING Last administered on 08/20/19 05:19; Start 08/20/19 at 01:15; Stop 08/20/19 at 08:31; Status DC Ondansetron HCl (Zofran) 4 mg PRN Q4HRS PRN IV NAUSEA/VOMITING Last administered on 08/22/19 13:58; Start 08/20/19 at 08:00 Cetirizine HCl (ZyrTEC) 10 mg DAILY PO Last administered on 08/22/19 08:52; Start 08/20/19 at 09:00 Levothyroxine Sodium (Synthroid) 25 mcg DAILY06 PO Last administered on 08/22/19 06:04; Start 08/20/19 at 09:00 Memantine (Namenda) 10 mg BID PO Last administered on 08/22/19 08:52; Start 08/20/19 at 09:00 Tamsulosin HCl (Flomax) 0.4 mg HS PO Last administered on 08/21/19 20:24; Start 08/20/19 at 21:00 Mirtazapine (Remeron) 30 mg QHS PO Last administered on 7/14/20at 20:24; Start 08/20/19 at 21:00 Heparin Sodium (Porcine) (Heparin Sodium) 5,000 unit Q8HRS SQ Last administered on 08/22/19at 14:05; Start 08/20/19 at 14:00 Psyllium Hydrophilic Mucilloid (Metamucil Fiber Packet) 1 pkt DAILY PO Last administered on 08/22/19at 08:52; Start 08/20/19 at 09:00 Polyethylene Glycol (miraLAX PACKET) 17 gm DAILY PO Last administered on 08/21/19at 08:55; Start 08/20/19 at 09:00 Naloxone HCl (Narcan) 0.4 mg PRN Q2MIN PRN IV SEE COMMENTS; Start 08/20/19 at 13:30 Bethanechol Chloride (Urecholine) 10 mg TIDAC PO Last administered on 08/22/19at 11:34; Start 08/20/19 at 14:00 Active Scripts Active Reported Oxycodone Hcl 5 Mg Capsule 5 Mg PO PRN Q8HRS PRN Morphine Sulfate Er (Morphine Sulfate) 15 Mg Tablet.er 1 Tab PO BID Vitamin D2 (Ergocalciferol (Vitamin D2)) 1,250 Mcg Capsule 1,250 Mcg PO DAILY Namenda (Memantine Hcl) 10 Mg Tablet 10 Mg PO BID Remeron (Mirtazapine) 30 Mg Tab.rapdis 30 Mg PO HS Flomax (Tamsulosin Hcl) 0.4 Mg Cap.er.24h 0.4 Mg PO HS Aricept (Donepezil Hcl) 10 Mg Tablet 10 Mg PO HS Lasix (Furosemide) 20 Mg Tablet 20 Mg PO DAILY Synthroid (Levothyroxine Sodium) 25 Mcg Tablet 25 Mcg PO DAILYAC Zyrtec (Cetirizine Hcl) 10 Mg Tablet 10 Mg PO DAILY Vital Signs Vital Signs Date Time Temp Pulse Resp B/P (MAP) Pulse Ox O2 Delivery O2 Flow Rate FiO2 08/22/19 11:00 98.3 52 18 129/67 (87) 98.3 08/22/19 08:00 Room Air 08/22/19 06:09 98 Labs Laboratory Tests Test 08/21/19 13:48 08/22/19 06:30 Sodium Level 144 mmol/L (136-145) 144 mmol/L (136-145) Potassium Level 4.4 mmol/L (3.5-5.1) 3.9 mmol/L (3.5-5.1) Chloride Level 111 mmol/L (98-107) 112 mmol/L (98-107) Carbon Dioxide Level 26 mmol/L (21-32) 29 mmol/L (21-32) Anion Gap 7 (6-14) 3 (6-14) Blood Urea Nitrogen 15 mg/dL (8-26) 14 mg/dL (8-26) Creatinine 1.9 mg/dL (0.7-1.3) 1.5 mg/dL (0.7-1.3) Estimated GFR (Cockcroft-Gault) 42.3 55.5 Glucose Level 125 mg/dL (70-99) 89 mg/dL (70-99) Calcium Level 7.9 mg/dL (8.5-10.1) 7.5 mg/dL (8.5-10.1) Iron Level 72 ug/dL (65-175) Total Iron Binding Capacity 361 ug/dL (250-450) Iron Saturation 20 % (15-34) Free Thyroxine 0.85 ng/dL (0.76-1.46) Phosphorus Level 2.8 mg/dL (2.6-4.7) Albumin 1.8 g/dL (3.4-5.0) Laboratory Tests Test 08/22/19 06:30 Sodium Level 144 mmol/L (136-145) Potassium Level 3.9 mmol/L (3.5-5.1) Chloride Level 112 mmol/L (98-107) Carbon Dioxide Level 29 mmol/L (21-32) Anion Gap 3 (6-14) Blood Urea Nitrogen 14 mg/dL (8-26) Creatinine 1.5 mg/dL (0.7-1.3) Estimated GFR (Cockcroft-Gault) 55.5 Glucose Level 89 mg/dL (70-99) Calcium Level 7.5 mg/dL (8.5-10.1) Phosphorus Level 2.8 mg/dL (2.6-4.7) Albumin 1.8 g/dL (3.4-5.0) Allergies Allergies Coded Allergies Type Severity Reaction Last Updated Verified No Known Drug Allergies 09/05/13 No Disposition/Orders: D/C to Home Justicifation of Admission Dx: Justifications for Admission: Justification of Admission Dx: Yes ELAINE IVERSON MD Aug 22, 2019 14:54
[2019-08-22] MEDS ORDERED: Bethanechol Chloride PO (14:56)
[2019-08-22] MEDS ORDERED: POLY17PO28 PO (14:56)
--- NOTE | 2019-08-22 14:57 | SNU/HH DC ---
DISCHARGE WITH HOME HEALTH DISCHARGE INFORMATION: Final Diagnosis: Problems Medical Problems: (1) Altered mental status Status: Acute Condition on Discharge: Stable CODE STATUS: Code Status: Full HOME HEALTH: Face to Face: I certify this patient is under my care and that I, or a nurse practitioner or physician's store assistant working with me, had a face to face encounter that meets the physician face to face encounter requirements with this patient on []. Medical Complications: Dementia RN For Eval/Treatment: Yes Speech Language Pathology For: Evaluation/Treatment EXTERMINATION INSPECTOR For: Community Resources Pt Meets Homebound Status: Limited distance walking, Poor cognition POST DISCHARGE ORDERS: Activity Instructions for Disc: Activity as tolerated Weight Bearing Status after Di: As tolerated DIET AFTER DISCHARGE: Cardiac CHECKS AFTER DISCHARGE: Checks after discharge: Check blood press - daily TREATMENT/EQUIPMENT ORDERS: Adaptive Equipment Issued: None CERTIFICATION STATEMENT: Certification Statement: Certification Statement: Based on the above finding, I certify that this patient is confined to the home and needs intermittent [facility] care, physical therapy and/or speech therapy, or continues to need occupational therapy.~ This patient is under my care, and I have initiated the establishment of the plan of care.~ This patient will be followed by myself or a community physician who will periodically review the plan of care. Home Meds Active Scripts Polyethylene Glycol 3350 (POLYETHYLENE GLYCOL 3350) 17 Gm Powd.pack, 17 GM PO DAILY for STOOLS for 30 Days, #30 PKT Prov:ELAINE IVERSON MD 08/22/19 [Bethanechol Chloride] 10 MG TABLET No Conflict Check, 10 MG PO TIDAC for BLADDER for 30 Days, #30 Prov:ELAINE IVERSON MD 08/22/19 Reported Medications Ergocalciferol (Vitamin D2) (Vitamin D2) 1,250 Mcg Capsule, 1250 MCG PO DAILY for bones, CAP 08/20/19 Memantine Hcl (NAMENDA) 10 Mg Tablet, 10 MG PO BID for memory, TAB 08/20/19 Mirtazapine (REMERON) 30 Mg Tab.rapdis, 30 MG PO HS for insomia, TAB 08/20/19 Tamsulosin Hcl (FLOMAX) 0.4 Mg Cap.er.24h, 0.4 MG PO HS for bph, TAB 08/20/19 Donepezil Hcl (ARICEPT) 10 Mg Tablet, 10 MG PO HS for memory, TAB 08/20/19 Furosemide (LASIX) 20 Mg Tablet, 20 MG PO DAILY for diuretic, TAB 08/20/19 Levothyroxine Sodium (SYNTHROID) 25 Mcg Tablet, 25 MCG PO DAILYAC for THYROID SUPPLEMENT, #30 TAB 0 Refills 08/20/19 Cetirizine Hcl (ZYRTEC) 10 Mg Tablet, 10 MG PO DAILY for allergy, TAB 08/20/19 Discontinued Reported Medications Oxycodone Hcl (OXYCODONE HCL) 5 Mg Capsule, 5 MG PO PRN Q8HRS PRN for PAIN, TAB 0 Refills 08/20/19 Morphine Sulfate (MORPHINE SULFATE ER) 15 Mg Tablet.er, 1 TAB PO BID for pain, #60 TAB 08/20/19 ELAINE IVERSON MD Aug 22, 2019 14:57
[2019-08-22 15:00] VITALS: BP 133/69
--- NOTE | 2019-08-22 17:32 | NUR ---
Discharge Note: CHRISS CABA [address] [place] [address] Discharge instructions and discharge home medications reviewed with Patient and a copy given. All questions have been answered and understanding verbalized. The following instructions and handouts were given: AMS and Betamethacol Discontinued IV lines Patient discharged to home with self care via wheelchair
== END 2019-08-22 17:56 | disposition home health service (06) | DRG 682 ==
LOC: ER 22:33 → 2 SOUTH 08-20 00:57 → OBSVTOIN 08-20 13:32
PROVIDERS: ADMIT Internal Medicine; ATTEND Internal Medicine
DX: N17.0 Acute kidney failure with tubular necrosis (principal); G93.41 Metabolic encephalopathy; E03.9 Hypothyroidism, unspecified; E78.00 Pure hypercholesterolemia, unspecified; E78.5 Hyperlipidemia, unspecified; F01.50 Vascular dementia, unspecified severity, without behavioral disturbance, psychotic disturbance, mood disturbance, and anxiety; G89.29 Other chronic pain; I12.9 Hypertensive chronic kidney disease with stage 1 through stage 4 chronic kidney disease, or unspecified chronic kidney disease; K91.1 Postgastric surgery syndromes; N18.9 Chronic kidney disease, unspecified; N40.0 Benign prostatic hyperplasia without lower urinary tract symptoms; Z83.3 Family history of diabetes mellitus; Z87.11 Personal history of peptic ulcer disease; Z90.49 Acquired absence of other specified parts of digestive tract; Z98.84 Bariatric surgery status; K21.9 Gastro-esophageal reflux disease without esophagitis; Y92.89 Other specified places as the place of occurrence of the external cause
CPT/HCPCS: 36415; 36600; 70450; 71045; 76770; 80048; 80053; 80069; 80307; 81001; 82607; 82805; 82962; 83540; 83550; 83690; 84439; 84443; 84484; 85025; 93005; 96374; G0378; G0379; G0480; J1644; J2405; 97535-GO; 99285-25

== ENCOUNTER 2020-01-03 03:23 | Emergency (ER) | payer OTHER ==
[~2020-01-03] VITALS: Ht 170.2 cm; Wt 80.0 kg
[~2020-01-03 03:23] MED LIST changes: +Bethanechol Chloride PO; +CETI10TA74 PO; +DONE10TA61 PO; +ERGO500027 PO; +FURO-69 PO; +LEVO25TA55 PO; +MEMA10TA PO; +MIRT-34 PO; +MIRT30TA2 PO; +MORP-15 PO; +OXYC5CAP PO; +POLY17PO28 PO; +TAMS0.4C97 PO
[2020-01-03 04:14] VITALS: BP 111/74
[2020-01-03] MEDS ORDERED: MORPHINE SULFATE 2 MG/ML VIAL. IM ONE (04:45)
[2020-01-03] MEDS ORDERED: DICL100G54 TP (04:59)
--- NOTE | 2020-01-03 05:02 | PHYS DOC ---
Past Medical History Past Medical History: GERD, High Cholesterol, Hypertension, Other Additional Past Medical Histor: dumping syndrome,STOMACH ULCERS,BPH,CHRONIC ABD PAIN,Neuropathy Past Surgical History: Appendectomy, Cholecystectomy, Other Additional Past Surgical Histo: multiple abd surgeries d/t ulcers, carpal tunnel, GASTRIC BYPASS Smoking Status: Never Smoker Alcohol Use: Rarely Drug Use: None General Adult EDM: Chief Complaint: HAND PROBLEM HPI: HPI: Patient is a 74 year old male presents with a chief complaint of bilateral hand pain. Patient states he has had had this hand pain on and off throughout the years. Pain is located in the [place]ar [place] region. Patient states usually resolved with massaging. Patient states tonight pain is worse than normal and has not resolved. Patient does have a history of carpal tunnel with surgical repair. 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 [] Eyes: Denies change in visual acuity. [] HENT: Denies nasal congestion or sore throat. [] Respiratory: Denies cough or shortness of breath. [] Cardiovascular: Denies chest pain or edema. [] GI: Denies abdominal pain, nausea, vomiting, bloody stools or diarrhea. [] : Denies dysuria. [] Musculoskeletal: Denies back pain or joint pain. [Positive bilateral hand pain] Integument: Denies rash. [] Neurologic: Denies headache, focal weakness or sensory changes. [] Endocrine: Denies polyuria or polydipsia. [] Lymphatic: Denies swollen glands. [] Psychiatric: Denies depression or anxiety. [] Heart Score: Risk Factors: Risk Factors: DM, Current or recent (<one month) smoker, HTN, HLP, family history of CAD, obesity. Risk Scores: Score 0 - 3: 2.5% MACE over next 6 weeks - Discharge Home Score 4 - 6: 20.3% MACE over next 6 weeks - Admit for Clinical Observation Score 7 - 10: 72.7% MACE over next 6 weeks - Early Invasive Strategies Current Medications: Current Medications Medications (Trade) Dose Ordered Sig/Kika Start Time Stop Time Status Last Admin Dose Admin Morphine Sulfate (Morphine Sulfate) 2 mg 1X ONCE 01/03/20 04:45 01/03/20 04:46 DC 01/03/20 04:43 2 MG Allergies: Allergies: Allergies Coded Allergies Type Severity Reaction Last Updated Verified No Known Drug Allergies 09/05/13 No Physical Exam: PE: Constitutional: Well developed, well nourished, no acute distress, non-toxic appearance. [] HENT: Normocephalic, atraumatic, bilateral external ears normal, oropharynx moist, no oral exudates, nose normal. [] Eyes: PERRLA, EOMI, conjunctiva normal, no discharge. [] Neck: Normal range of motion, no tenderness, supple, no stridor. [] Cardiovascular:Heart rate regular rhythm, no murmur [] Lungs & Thorax: Bilateral breath sounds clear to auscultation [] Abdomen: Bowel sounds normal, soft, no tenderness, no masses, no pulsatile masses. [] Skin: Warm, dry, no erythema, no rash. [] Back: No tenderness, no CVA tenderness. [] Extremities: No tenderness, no cyanosis, no clubbing, ROM intact, no edema. [] Neurologic: Alert and oriented X 3, normal motor function, normal sensory function, no focal deficits noted. [] Psychologic: Affect normal, judgement normal, mood normal. [] Current Patient Data: Vital Signs: Vital Signs Date Time Temp Pulse Resp B/P (MAP) Pulse Ox O2 Delivery O2 Flow Rate FiO2 01/03/20 04:43 16 Room Air 01/03/20 04:14 70 111/74 (86) 98 01/03/20 03:25 98.3 98.3 EKG: EKG: [] Radiology/Procedures: Radiology/Procedures: [] Course & Med Decision Making: Course & Med Decision Making Pertinent Labs and Imaging studies reviewed. (See chart for details) [] Patient was evaluated for chief complaint. Based upon history of present illness and physical exam no emergent radiologic imaging or labs indicated. Patient's pain was treated with 2 mg of morphine. He states pain has greatly improved post treatment. Will discharge patient home with prescription Voltaren. Patient to continue taking prescribed morphine as needed. Patient can also take Tylenol ibuprofen pRN. Dragon Disclaimer: Jackeline Disclaimer: This electronic medical record was generated, in whole or in part, using a voice recognition dictation system. Departure Departure Impression: Primary Impression: Pain, hand Additional Impression: Bilateral hand pain Disposition: 01 DC HOME SELF CARE/HOMELESS Condition: STABLE Referrals: JAVIER BARRIOS (PCP) Patient Instructions: Pain of Unknown Etiology (Pain without a known Cause) Scripts Diclofenac Sodium (VOLTAREN) 100 Gm Gel..gram. 1 GM TP QID for pain for 30 Days, #1 EACH 0 Refills apply to affected area(s) Prov: KATHERINE VAZQUEZ DO 01/03/20 KATHERINE VAZQUEZ DO Jan 03, 2020 05:02
== END 2020-01-03 05:13 | disposition home or self-care (01) ==
LOC: ER 03:23
DX: M79.641 Pain in right hand (principal); M79.642 Pain in left hand; K21.9 Gastro-esophageal reflux disease without esophagitis; E78.00 Pure hypercholesterolemia, unspecified; I10 Essential (primary) hypertension; G89.29 Other chronic pain
CPT/HCPCS: 96372; 99283; J2270

== ENCOUNTER 2020-03-28 18:54 | Emergency (ER) | payer MEDICARE ==
[~2020-03-28] VITALS: Ht 177.8 cm; Wt 75.0 kg
[2020-03-28] MEDS ORDERED: fentaNYL PF VIAL 100 MCG/2 ML VIAL IVP ONE (19:00)
[2020-03-28] MEDS ORDERED: PANTOPRAZOLE IV PUSH 40 MG VIAL. IVP ONE (19:00)
[2020-03-28] MEDS ORDERED: IV NORMAL SALINE 1000ML BAG 1,000 ML IV ONE (19:00)
[2020-03-28] MEDS ORDERED: FAMOTIDINE 20 MG/2 ML VIAL IVP ONE (19:00)
--- NOTE | 2020-03-28 19:00 | PHYS DOC ---
Past Medical History Past Medical History: GERD, High Cholesterol, Hypertension, Other Additional Past Medical Histor: dumping syndrome,STOMACH ULCERS,BPH,CHRONIC ABD PAIN,Neuropathy (SOHA ENRIQUEZ APRN) Past Surgical History: Appendectomy, Cholecystectomy, Other Additional Past Surgical Histo: multiple abd surgeries d/t ulcers, carpal tunnel, GASTRIC BYPASS (SOHA ENRIQUEZ CLINIC OFFICE COORDINATOR) Smoking Status: Never Smoker Alcohol Use: Rarely Drug Use: None (SOHA ENRIQUEZ APRN) General Adult HPI: HPI: Patient is a 74 year old male who presents with abdominal pain that started earlier this evening after eating some chicken noodle soup. He states that he did vomit the chicken will sleep up. He states the pain feels like a stabbing and a twisting sensation and it is all over the his abdomen. Patient denies blood in his stool or vomit. Rates his pain a 10 out of 10. Patient states that he has chronic diarrhea. Otherwise patient denies fever, cough, shortness of breath, chest pain, headache, dizziness, vision changes, focal weakness. (SOHA ENRIQUEZ CLINIC OFFICE COORDINATOR) Review of Systems: Review of Systems: Constitutional: Denies fever or chills. [] Eyes: Denies change in visual acuity. [] HENT: Denies nasal congestion or sore throat. [] Respiratory: Denies cough or shortness of breath. [] Cardiovascular: Denies chest pain or edema. [] GI: + abdominal pain, +nausea, +vomiting, denies bloody stools or +chronic diarrhea. [] : Denies dysuria. [] Musculoskeletal: Denies back pain or joint pain. [] Integument: Denies rash. [] Neurologic: Denies headache, focal weakness or sensory changes. [] Endocrine: Denies polyuria or polydipsia. [] Lymphatic: Denies swollen glands. [] Psychiatric: Denies depression or anxiety. [] (SOHA ENRIQUEZ CLINIC OFFICE COORDINATOR) Heart Score: Risk Factors: Risk Factors: DM, Current or recent (<one month) smoker, HTN, HLP, family history of CAD, obesity. Risk Scores: Score 0 - 3: 2.5% MACE over next 6 weeks - Discharge Home Score 4 - 6: 20.3% MACE over next 6 weeks - Admit for Clinical Observation Score 7 - 10: 72.7% MACE over next 6 weeks - Early Invasive Strategies (SOHA ENRIQUEZ APRN) Current Medications: Current Medications Medications (Trade) Dose Ordered Sig/Kika Start Time Stop Time Status Last Admin Dose Admin Famotidine (Pepcid Vial) 20 mg 1X ONCE 03/28/20 19:00 03/28/20 19:01 UNV Fentanyl Citrate (Fentanyl 2ml Vial) 50 mcg 1X ONCE 03/28/20 19:00 03/28/20 19:01 UNV (SOHA ENRIQUEZ APRN) Allergies: Allergies: Allergies Coded Allergies Type Severity Reaction Last Updated Verified No Known Drug Allergies 09/05/13 No (SOHA ENRIQEUZ APRN) Physical Exam: PE: Constitutional: Well developed, well nourished, no acute distress, non-toxic appearance. [] HENT: Normocephalic, atraumatic, bilateral external ears normal, oropharynx moist, no oral exudates, nose normal. [] Eyes: PERRLA, EOMI, conjunctiva normal, no discharge. [] Neck: Normal range of motion, no tenderness, supple, no stridor. [] Cardiovascular:Heart rate regular rhythm, no murmur [] Lungs & Thorax: Bilateral breath sounds clear to auscultation [] Abdomen: Bowel sounds normal, soft, generalized tenderness, no masses, no pulsatile masses. [] Skin: Warm, dry, no erythema, no rash. [] Back: No tenderness, no CVA tenderness. [] Extremities: No tenderness, no cyanosis, no clubbing, ROM intact, Bilateral lower 1+ edema. [] Neurologic: Alert and oriented X 3, normal motor function, normal sensory function, no focal deficits noted. [] Psychologic: Affect normal, judgement normal, mood normal. [] (SOHA ENRIQUEZ APRN) EKG: EKand read by Dr Lew as Sinus Rhythm and no STEMI[] (SOHA ENRIQUEZ APRN) Radiology/Procedures: Radiology/Procedures: [] Impression: [facility] [address] [place] [address] IMAGING REPORT Signed PATIENT: CHRISS CABA ACCOUNT: [id number] : 1945 LOCATION: ER AGE: 74 SEX: M EXAM STATUS: REG ER ORD. PHYSICIAN: SOHA ENRIQUEZ APRN REASON: severe abd pain PROCEDURE: CT ABDOMEN PELVIS WO CONTRAST PQRS Compliance Statement: One or more of the following individualized dose reduction techniques were utilized for this examination: 1. Automated exposure control 2. Adjustment of the mA and/or kV according to patient size 3. Use of iterative reconstruction technique CT ABDOMEN+PELVIS WO Clinical Indication: Reason: severe abd pain / Comparison: CT abdomen and pelvis without contrast, September 27, 2018. Technique: Helical CT imaging of the abdomen and pelvis is performed without IV or oral contrast. Findings: Evaluation of solid organs and bowel is limited without oral and IV contrast, decreasing sensitivity for detection of pathology. Small left pleural effusion. Mild consolidation in the posterior left lower lobe. The right lung base is clear. The cardiac size is normal. Cholecystectomy. The liver, spleen, pancreas, adrenal glands, abdominal aorta, and kidneys are normal. There is postsurgical change of gastric bypass. There is no small bowel obstruction. There are multiple surgical clips in the upper abdomen mesentery. Appendectomy. There is scattered stool in the colon. There is no colon wall thickening. There is no abdominal adenopathy or free fluid. The urinary bladder is normal. Prostate size upper limits of normal. No pelvic free fluid. No acute bone abnormality. IMPRESSION: 1. Small left pleural effusion. 2. Mild consolidation in the posterior left lower lobe may be compressive atelectasis or pneumonia. 3. No acute abdominal or pelvic abnormality. Electronically signed by: Caleb Lundberg MD (03/28/2020 8:38 PM) [facility] DICTATED and SIGNED BY: CALEB LUNDBERG MD DATE: 03/28/[id number] 0 [facility] [address] [place], [place] [id number] IMAGING REPORT Signed PATIENT: CHRISS CABA ACCOUNT: [id number] : 1945 LOCATION: ER AGE: 74 SEX: M EXAM STATUS: REG ER ORD. PHYSICIAN: SOHA ENRIQUEZ APRN REASON: abdnormal ct scan PROCEDURE: CHEST PA & LATERAL XR CHEST 2V History: Reason: abdnormal ct scan / Spl. Instructions: / History: Comparison: CT March 28, 2020 Findings: Small left pleural effusion with adjacent opacity. No pneumothorax. Normal heart size. Postoperative changes upper abdomen. Impression: 1. Small left pleural effusion with adjacent opacity, may represent atelectasis or developing consolidation. Recommend follow-up. Electronically signed by: Hussain Fletcher DO (03/28/2020 9:25 PM) [facility] DICTATED and SIGNED BY: HUSSAIN FLETCHER DO DATE: 03/28/201031GYE5 0 (SOHA ENRIQUEZ APRN) Course & Med Decision Making: Course & Med Decision Making Pertinent Labs and Imaging studies reviewed. (See chart for details) COVID-19 CRITERIA: The patient was evaluated during the global COVID-19 pandemic, and that diagnosis was suspected/considered upon their initial presentation. Their evaluation, treatment and testing was consistent with current guidelines for patients who present with complaints or symptoms that may be related to COVID-19. See HPI. Alert and oriented x4. Ambulatory with a steady gait. Speaks in full complete sentences. Abdomen is soft but generalized tenderness with palpation. Bowel sounds are active. Bilateral lower extremity 1+ swelling. EKG shows sinus rhythm and no STEMI. Blood work shows no acute findings occasion. His liver enzymes are elevated. Chest x-ray does show opacity in the pleural effusion. Patient is treated with azithromycin in the ED. I have tested for Covid in the ED. He is satting at 98% on room air. Vital signs within normal limits. Afebrile. Patient states that for he feels better and is willing to eat some ice chips. He states the nausea is better and his abdominal pain is a lot better. Patient is p.o. challenge. Patient remained stable and he will be discharged home on p.o. antibiotics can follow-up with his primary care provider. [] (SOHA ENRIQUEZ APRN) Dragon Disclaimer: Dragon Disclaimer: This electronic medical record was generated, in whole or in part, using a voice recognition dictation system. (SOHA ENRIQUEZ APRN) COVID-19 Patient Risks: Age 65 or older: Yes Sign of co-morbidity: Yes Exp to person + for COVID: No Exp to PUI: No Travel from affected area: No Lower respiratory symptoms: Yes Fever: No Other: Yes (NAUSEA, VOMITING) (SOHA ENRIQUEZ APRN) PPE Use: Full PPE with N95 mask or PAPR: Yes (SOHA ENRIQUEZ APRN) Departure Departure Impression: Primary Impression: Pneumonia Qualified Codes: J18.9 - Pneumonia, unspecified organism Additional Impressions: Nausea & vomiting Qualified Codes: R11.2 - Nausea with vomiting, unspecified Person under investigation for COVID-19 Disposition: DC HOME SELF CARE/HOMELESS Condition: STABLE Referrals: JAVIER BARRIOS (PCP) Patient Instructions: Nausea and Vomiting, Pneumonia, Adult Additional Instructions: Call and make an appointment with your primary care provider on Tuesday. The Covid test will take 48 hours. You Should quarantine until you get the results back. Take your medication as prescribed. If you begin having severe chest pain or shortness of breath return to the ED. Scripts Pantoprazole Sodium (PROTONIX) 20 Mg Tablet.dr 1 TAB PO DAILY, #30 TAB Prov: SOHA ENRIQUEZ APRN 03/28/20 Methylprednisolone (MEDROL) 4 Mg Tab.ds.pk 1 PKG PO UD, #1 PKG Prov: SOHA ENRIQUEZ APRN 03/28/20 Azithromycin (AZITHROMYCIN TABLET) 250 Mg Tablet 1 PKG PO UD for 5 Days, #6 TAB 0 Refills 2 the first day followed by 1 for days 2-5 Prov: SOHA ENRIQUEZ APRN 03/28/20 Attending Signature Attending Signature I have reviewed the PA/ASSOCIATE PROFESSOR OF ECONOMICS's note and plan of care. I was available for c onsultation as needed during the patient's visit in the emergency department. I agree with the clinical impression, plan, and disposition. (JUDIT LEW DO) SOHA ENRIQUEZ APRN Mar 28, 2020 19:00 JUDIT LEW DO Mar 30, 2020 02:15
[2020-03-28] MEDS ORDERED: ONDANSETRON PF 4 MG/2 ML VIAL. ONE (19:16)
[2020-03-28 19:47] LABS: BASO # 0.1 x10^3/uL (0.0-0.2); BASO % 1 % (0-3); EOS # 0.1 x10^3/uL (0.0-0.7); EOS % 1 % (0-3); HEMATOCRIT 30.9 % (39.0-53.0); LYMPH # 0.9 x10^3/uL (1.0-4.8); LYMPH % 11 % (24-48); MEAN CORPUSCULAR HEMOGLOBIN 27 pg (25-35); MEAN CORPUSCULAR HGB CONC 32 g/dL (31-37); MEAN CORPUSCULAR VOLUME 83 fL (79-100); MONO # 0.5 x10^3/uL (0.0-1.1); MONO % 6 % (0-9); NEUT # 6.9 x10^3/uL (1.8-7.7); NEUT % 81 % (31-73); PLATELET COUNT 264 x10^3/uL (140-400); RED BLOOD COUNT 3.72 x10^6/uL (4.30-5.70); RED CELL DISTRIBUTION WIDTH 16.2 % (11.5-14.5); WHITE BLOOD COUNT 8.5 x10^3/uL (4.0-11.0)
[2020-03-28 19:56] LABS: CALCIUM 7.1 mg/dL (8.5-10.1); CREATININE 2.1 mg/dL (0.7-1.3); GFR 37.6; POTASSIUM 4.6 mmol/L (3.5-5.1)
[2020-03-28] MEDS ORDERED: ONDANSETRON PF 4 MG/2 ML VIAL. IVP ONE (20:00)
[2020-03-28 20:01] LABS: ALBUMIN 1.9 g/dL (3.4-5.0); ALBUMIN/GLOBULIN RATIO 0.7 (1.0-1.7); TOTAL BILIRUBIN 0.1 mg/dL (0.2-1.0); TOTAL PROTEIN 4.6 g/dL (6.4-8.2)
--- NOTE | 2020-03-28 20:41 | RAD ---
PQRS Compliance Statement: One or more of the following individualized dose reduction techniques were utilized for this examinat ion: 1. Automated exposure control 2. Adjustment of the mA and/or kV according to patient size 3. Use of iterative reconstruction technique CT ABDOMEN+PELVIS WO Clinical Indication: Reason: severe abd pain / Comparison: CT abdomen and pelvis without contrast, September 27, 2018. Technique: Helical CT imaging of the abdomen and pelvis is performed without IV or oral contrast. Findings: Evaluation of solid organs and bowel is limited without oral and IV contrast, decreasing sensitivity for detection of pathology. Small left pleural effusion. Mild consolidation in the posterior left lower lobe. The right lung base is clear. The cardiac size is normal. Cholecystectomy. The liver, spleen, pancreas, adrenal glands, abdominal aorta, and kidneys are normal . There is postsurgical change of gastric bypass. There is no small bowel obstruction. There are multip le surgical clips in the upper abdomen mesentery. Appendectomy. There is scattered stool in the colon . There is no colon wall thickening. There is no abdominal adenopathy or free fluid. The urinary bladder is normal. Prostate size upper limits of normal. No pelvic free fluid. No acute bone abnormality. IMPRESSION: 1. Small left pleural effusion. 2. Mild consolidation in the posterior left lower lobe may be compressive atelectasis or pneumonia. 3. No acute abdominal or pelvic abnormality. Electronically signed by: Caleb Lundberg MD (03/28/2020 8:38 PM) [facility]
--- NOTE | 2020-03-28 21:27 | RAD ---
XR CHEST 2V History: Reason: abdnormal ct scan / Spl. Instructions: / History: Comparison: CT March 28, 2020 Findings: Small left pleural effusion with adjacent opacity. No pneumothorax. Normal heart size. Postoperative changes upper abdomen. Impression: 1. Small left pleural effusion with adjacent opacity, may represent atelectasis or developing consol idation. Recommend follow-up. Electronically signed by: Hussain Fletcher DO (03/28/2020 9:25 PM) [facility]
[2020-03-28] MEDS ORDERED: AZITHRMYCN 500MG IVPB FOR OMNI 250 ML IV ONE (21:45)
[2020-03-28 21:47] LABS: BILIRUBIN,URINE NEGATIVE (NEG); CLARITY,URINE CLEAR; COLOR,URINE YELLOW; NITRITE,URINE NEGATIVE (NEG); PH,URINE 5.5 (<5.0-8.0); PROTEIN,URINE NEGATIVE (NEG-TRACE); UROBILINOGEN,URINE 0.2 mg/dL (0.2 mg/dL)
[2020-03-28 21:52] LABS: RBC,URINE 0 /HPF (0-2); WBC,URINE OCC /HPF (0-4)
[2020-03-28 21:53] LABS: HYALINE CASTS, URINE FEW /HPF
[2020-03-28 21:54] LABS: BACTERIA,URINE 0 /HPF (0-FEW)
[2020-03-28] MEDS ORDERED: AZIT250T6 PO (22:33)
[2020-03-28] MEDS ORDERED: METH4TAB2 PO (22:33)
[2020-03-28] MEDS ORDERED: PANT20TA2 PO (22:33)
[2020-03-28 23:11] VITALS: BP 112/68
--- NOTE | 2020-03-31 09:12 | NUR ---
IP: Attempted to contact pt concerning COVID results. No answer. Left a voicemail to return the call.
--- NOTE | 2020-04-02 08:31 | NUR ---
IP: Pt returned the call and I informed him of negative COVID results. Pt verbalized understanding.
== END 2020-03-28 23:20 | disposition home or self-care (01) ==
LOC: ER 18:54
DX: J18.9 Pneumonia, unspecified organism (principal); Z20.822 Contact with and (suspected) exposure to COVID-19; R11.2 Nausea with vomiting, unspecified; K21.9 Gastro-esophageal reflux disease without esophagitis; E78.00 Pure hypercholesterolemia, unspecified; I10 Essential (primary) hypertension; G89.29 Other chronic pain; Z90.49 Acquired absence of other specified parts of digestive tract; Z90.89 Acquired absence of other organs; Z95.1 Presence of aortocoronary bypass graft
CPT/HCPCS: 36415; 71046; 74176; 80053; 81001; 83605; 83690; 84484; 85025; 87040; 87205; 96361; 96365; 96375; 99284; C9113; C9803; J0456; J2405; J3010; J7030; U0003